=== PATIENT | female | born 1975 | race African-American/Black ===

== ENCOUNTER 2017-11-19 08:25 | Emergency (ER) | payer OTHER ==
[2017-11-19 08:37] VITALS: BP 115/52; PULSE 78; TEMP 98.3; BMI 38.0
--- NOTE | 2017-11-19 08:42 | PDOC ---
History of Present Illness - General Chief Complaint: Asthma Stated Complaint: Asthma Time Seen by Provider: 11/19/17 08:38 - History of Present Illness Initial Comments: 11/19/17 08:41 The patient denies chest pain, shortness of breath, headache and dizziness. Denies fever, chills, nausea, vomit, diarrhea and constipation. Denies dysuria, frequency, urgency and hematuria. Allergies: Past History - Past Medical History Allergies/Adverse Reactions: Allergies Allergy/AdvReac Type Severity Reaction Status Date / Time Penicillins AdvReac Severe Hives Verified 11/19/17 08:30 lobster Allergy Uncoded 11/19/17 08:30 Home Medications: Ambulatory Orders Albuterol Sulfate 0.5% [Ventolin 0.5% Nebulizing Soln. -] 1 neb IH Q4H PRN #10 vial 05/31/16 Albuterol Sulfate Inhaler - [Ventolin HFA Inhaler -] 1 - 2 inh PO Q4H PRN #1 inhaler 05/31/16 predniSONE [Deltasone -] 60 mg PO DAILY #6 tablet 05/31/16 Asthma: Yes - Surgical History Abdominal Surgery: Yes Cholecystectomy: (GALLSTONES.) - Immunization History Immunization Up to Date: Yes - Suicide/Smoking/Psychosocial Hx Smoking History: Former smoker Have you smoked in the past 12 months: No Number of Cigarettes Smoked Daily: 10 Cigars Per Day: 0 Information on smoking cessation initiated: No Hx Alcohol Use: Yes Drug/Substance Use Hx: Yes (marijuana) Substance Use Type: None Review of Systems - Review of Systems Comments:: 11/19/17 08:41 GENERAL/CONSTITUTIONAL: No fever or chills. No weakness. HEAD, EYES, EARS, NOSE AND THROAT: No change in vision. No ear pain or discharge. No sore throat. CARDIOVASCULAR: No chest pain or shortness of breath RESPIRATORY: No cough, wheezing, or hemoptysis. GASTROINTESTINAL: No nausea, vomiting, diarrhea or constipation. GENITOURINARY: No dysuria, frequency, or change in urination. MUSCULOSKELETAL: No joint or muscle swelling or pain. No neck or back pain. SKIN: No rash NEUROLOGIC: No headache, vertigo, loss of consciousness, or change in strength/ sensation. ENDOCRINE: No increased thirst. No abnormal weight change HEMATOLOGIC/LYMPHATIC: No anemia, easy bleeding, or history of blood clots. ALLERGIC/IMMUNOLOGIC: No hives or skin allergy. *Physical Exam - Vital Signs Last Vital Signs Temp Pulse Resp BP Pulse Ox 98.3 F 78 18 115/52 98 11/19/17 08:30 11/19/17 08:30 11/19/17 08:30 11/19/17 08:30 11/19/17 08:30 - Physical Exam Comments: 11/19/17 08:42 GENERAL: Awake, alert, and fully oriented, in no acute distress HEAD: No signs of trauma, normocephalic, atraumatic EYES: PERRLA, EOMI, sclera anicteric, conjunctiva clear ENT: Auricles normal inspection, hearing grossly normal, nares patent, oropharynx clear without exudates. Moist mucosa NECK: Normal ROM, supple, no lymphadenopathy, JVD, or masses LUNGS: No distress, speaks full sentences, clear to auscultation bilaterally HEART: Regular rate and rhythm, normal S1 and S2, no murmurs, rubs or gallops, peripheral pulses normal and equal bilaterally. ABDOMEN: Soft, nontender, normoactive bowel sounds. No guarding, no rebound. No masses EXTREMITIES: Normal inspection, Normal range of motion, no edema. No clubbing or cyanosis. NEUROLOGICAL: Cranial nerves II through XII grossly intact. Normal speech, normal gait, no focal sensorimotor deficits SKIN: Warm, Dry, normal turgor, no rashes or lesions noted. *DC/Admit/Observation/Transfer - Referrals Referrals: Theresa Silva MD [Primary Care Provider] - - Patient Instructions - Post Discharge Activity
[2017-11-19] MEDS ORDERED: ALBUTEROL SO4 2.5/IPRATROPIUM 0.5 INH SOL 3 ML VIAL.NEB. NEB ONE (08:50)
--- NOTE | 2017-11-19 09:12 | PDOC ---
History of Present Illness - General Chief Complaint: Asthma Stated Complaint: Asthma Time Seen by Provider: 11/19/17 08:38 History Source: Patient Exam Limitations: No Limitations - History of Present Illness Initial Comments: 11/19/17 09:23 Patient is a 42-year-old female, history of asthma reports that the power went out on her house and she ran out of her inhaler had an asthma attack this morning and could not give herself a treatment. Was wheezing prior to arrival was brought in by ambulance they gave her treatment in the ambulance which cleared her. Patient is requesting albuterol inhaler. Past Medical History: [Denies]. Allergies: No known allergies Medications: [Albuterol when necessary] Family History: Non-contributory Social History: Denies smoking, alcohol use, or IVDU Review of Systems GENERAL/CONSTITUTIONAL: [No fever or chills. No weakness. No weight change.] HEAD, EYES, EARS, NOSE AND THROAT: [No change in vision. No ear pain or discharge. No sore throat. ] CARDIOVASCULAR: [No chest pain or shortness of breath.] RESPIRATORY: [No cough, wheezing no hemoptysis] GASTROINTESTINAL: [No nausea, vomiting, diarrhea or constipation. No rectal bleeding.] GENITOURINARY: [No dysuria, frequency, or change in urination.] MUSCULOSKELETAL: [No joint or muscle swelling or pain. No neck or back pain.] SKIN AND BREASTS: [No rash or easy bruising.] NEUROLOGIC: [No headache, vertigo, loss of consciousness, or loss of sensation.] PSYCHIATRIC: [No depression or anxiety.] ENDOCRINE: [No increased thirst. No abnormal weight change.] HEMATOLOGIC/LYMPHATIC: [No anemia, easy bleeding, or history of blood clots.] ALLERGIC/IMMUNOLOGIC: [No hives or skin allergy. No latex allergy.] Physical Exam: GENERAL: [The patient is awake, alert, and fully oriented, in no acute distress. ] EYES: [Pupils equal, round and reactive to light, extraocular movements intact, sclera anicteric, conjunctiva clear.] ENT: [Ears normal, nares patent, oropharynx clear without exudates. Moist mucous membranes. No uvula deviation] NECK: [Normal range of motion, supple without lymphadenopathy, JVD, or masses.] LUNGS: [Breath sounds equal, clear to auscultation bilaterally. No wheezes, and no crackles.] HEART: [Regular rate and rhythm, normal S1 and S2 without murmur, rub or gallop. ] ABDOMEN: [Soft, nontender, normoactive bowel sounds. No guarding, no rebound. No masses. No bruising or abrasions] RECTAL : [Guaiac negative, normal rectal tone.] MUSCULOSKELETAL: [Normal range of motion, no edema. No clubbing or cyanosis. No cords, erythema, or tenderness. No CVA Tenderness with fist.] NEUROLOGICAL: [Cranial nerves II through XII grossly intact. Normal speech, normal gait.] SKIN: [Warm, Dry, normal turgor, no rashes or lesions noted.] Past History - Past Medical History Allergies/Adverse Reactions: Allergies Allergy/AdvReac Type Severity Reaction Status Date / Time Penicillins AdvReac Severe Hives Verified 11/19/17 08:30 lobster Allergy Uncoded 11/19/17 08:30 Home Medications: Ambulatory Orders Albuterol Sulfate 0.5% [Ventolin 0.5% Nebulizing Soln. -] 1 neb IH Q4H PRN #10 vial 05/31/16 predniSONE [Deltasone -] 60 mg PO DAILY #6 tablet 05/31/16 Albuterol 0.083% Nebulizer Juliana [Ventolin 0.083% Nebulizer Soln -] 1 neb NEB Q4H #30 vial 11/19/17 Albuterol Sulfate Inhaler - [Ventolin HFA Inhaler -] 1 - 2 inh PO Q4H #1 inhaler 11/19/17 Asthma: Yes - Surgical History Abdominal Surgery: Yes Cholecystectomy: (GALLSTONES.) - Immunization History Immunization Up to Date: Yes - Suicide/Smoking/Psychosocial Hx Smoking History: Former smoker Have you smoked in the past 12 months: No Number of Cigarettes Smoked Daily: 10 Cigars Per Day: 0 Information on smoking cessation initiated: No Hx Alcohol Use: Yes Drug/Substance Use Hx: Yes (marijuana) Substance Use Type: None *Physical Exam - Vital Signs Last Vital Signs Temp Pulse Resp BP Pulse Ox 98.3 F 78 18 115/52 98 11/19/17 08:30 11/19/17 08:30 11/19/17 08:30 11/19/17 08:30 11/19/17 08:30 ED Treatment Course - Medications Given in the ED: ED Medications Discontinued Medications Generic Name Dose Route Start Last Admin Trade Name Liudmila PRN Reason Stop Dose Admin Albuterol/Ipratropium 1 amp 11/19/17 08:50 11/19/17 08:54 Duoneb - NEB 11/19/17 08:51 1 amp ONCE ONE Administration Medical Decision Making - Medical Decision Making 11/19/17 09:24 A/P: Patient with asthma exacerbation cleared prior to arrival after treatment in the ambulance. I will give her one Combivent in ER DC on Ventolin neb and Ventolin inhaler. Patient reassessed prior to discharge, lungs are clear. *DC/Admit/Observation/Transfer Diagnosis at time of Disposition: Asthma, Prescription refill - Discharge Dispostion Disposition: HOME Condition at time of disposition: Stable Admit: No - Prescriptions Prescriptions: Albuterol 0.083% Nebulizer Juliana [Ventolin 0.083% Nebulizer Soln -] 1 neb NEB Q4H #30 vial Albuterol Sulfate Inhaler - [Ventolin HFA Inhaler -] 1 - 2 inh PO Q4H #1 inhaler - Referrals Referrals: Theresa Silva MD [Primary Care Provider] - - Patient Instructions Printed Discharge Instructions: Asthma -- Adult Additional Instructions: Treatments every 4 hours as needed Cool air humidifier when sleeping Followup in the primary care doctor's office in 2 days for evaluation. If any respiratory distress, increased cough, inability to drink, increased wheezing please return immediately to emergency department. - Post Discharge Activity Forms/Work/School Notes: Back to Work
== END 2017-11-19 09:18 | disposition home or self-care (01) ==
LOC: JERFT 08:25
PROC: 3E0F7GC Introduction of Other Therapeutic Substance into Respiratory Tract, Via Natural or Artificial Opening (ICD-10-PCS; principal; 2017-11-19)
DX: J45.909 Unspecified asthma, uncomplicated (principal); Z76.0 Encounter for issue of repeat prescription; Z88.0 Allergy status to penicillin; Z91.013 Allergy to seafood; Z87.891 Personal history of nicotine dependence
CPT/HCPCS: 99281-25

== ENCOUNTER 2018-05-10 12:00 | Emergency (ER) | payer OTHER ==
[2018-05-10 12:09] VITALS: BP 105/76; PULSE 79; TEMP 98.1; BMI 39.8
--- NOTE | 2018-05-10 12:24 | PDOC ---
History of Present Illness - General Chief Complaint: Asthma Stated Complaint: ASTHMA Time Seen by Provider: 05/10/18 12:13 History Source: Patient Exam Limitations: No Limitations - History of Present Illness Initial Comments: Patient is a 43-year-old female who has a history of asthma who states over the past 3 days she has been out of her inhaler. She is requesting a refill. She denies shortness of breath however admits to mild wheezing. She also has a history of seasonal ALLERGIES and states that approximately this time every year she has clear nasal drainage and her asthma is exacerbated. Patient denies chest pain. Patient denies any aggravating factors overstates her inhaler relieves her symptoms. 05/10/18 12:20 Timing/Duration: constant Past History - Travel Traveled outside of the country in the last 30 days: No Close contact w/someone who was outside of country & ill: No - Past Medical History Allergies/Adverse Reactions: Allergies Allergy/AdvReac Type Severity Reaction Status Date / Time Penicillins AdvReac Severe Hives Verified 05/10/18 12:06 lobster Allergy Uncoded 05/10/18 12:06 Home Medications: Ambulatory Orders Albuterol Sulfate Inhaler - [Ventolin Hfa Inhaler -] 1 - 2 inh PO Q4H #1 inhaler 05/10/18 Montelukast Sodium [Singulair] 10 mg PO HS 05/10/18 Asthma: Yes COPD: No - Surgical History Abdominal Surgery: Yes Cholecystectomy: No (GALLSTONES.) - Immunization History Immunization Up to Date: Yes - Suicide/Smoking/Psychosocial Hx Smoking History: Former smoker Have you smoked in the past 12 months: No Number of Cigarettes Smoked Daily: 10 Cigars Per Day: 0 Information on smoking cessation initiated: No Hx Alcohol Use: Yes Drug/Substance Use Hx: Yes (marijuana) Substance Use Type: None Review of Systems - Review of Systems Able to Perform ROS?: Yes Constitutional: No: Chills, Fever Respiratory: Yes: Wheezing. No: Cough, Shortness of Breath, Stridor Cardiac (ROS): No: Chest Pain All Other Systems: Reviewed and Negative *Physical Exam - Vital Signs Last Vital Signs Temp Pulse Resp BP Pulse Ox 98.1 F 79 18 105/76 100 05/10/18 12:07 05/10/18 12:07 05/10/18 12:07 05/10/18 12:07 05/10/18 12:07 - Physical Exam Comments: Constitutional: VS stated, pt appears in no apparent distress; sitting in chair. Able to speak in complete sentences without becoming short of breath. Skin: Warm and dry. Intact, no lesions or excoriations. Head: Normocephalic; atraumatic Eyes conjunctiva pink without injection or discharge. Lids normal; no periorbital edema or erythema. Vision subjectively normal or at baseline. Ears: No tenderness present. Canals without injection or discharge; TM clear, no retractions or bulging. Nose: Patent, mucosa pink. No drainage. Throat: Oropharynx with pink and moist mucosa. Dentition good. No pharyngeal edema; erythema or exudate. Tongue normal, no fasciculations. Airway Patent. Hypoglossal area is soft. Neck: Supple, non-tender, with full ROM, trachea midline, no anterior/posterior cervical chain lymphadenopathy Chest: Normal AP diameter, symmetrical excursions bilaterally, no retractions or bulging of the intercostal spaces. No pain or tenderness noted on palpation. Lungs: Patient has mild wheezing on the left anterior and posteriorly. No use of accessory muscles. Heart: Regular rate and rhythm, S1/S2 auscultated. No murmurs, rubs, or gallops. No visible pulsations, heaves, or lifts on precordium. Musculoskeletal: Moves all extremities without difficulty. Neurologic: Awake, alert. Conversation fluent. Psychiatric: Appropriate affect. 05/10/18 12:21 Medical Decision Making - Medical Decision Making Patient's oxygen saturation is 100%. She is able to speak in complete sentences. At this time I will refill her albuterol and she'll follow-up with her PCP. 05/10/18 12:23 *DC/Admit/Observation/Transfer Diagnosis at time of Disposition: Asthma - Discharge Dispostion Disposition: HOME Condition at time of disposition: Stable Decision to Admit order: No - Prescriptions Prescriptions: Albuterol Sulfate Inhaler - [Ventolin Hfa Inhaler -] 1 - 2 inh PO Q4H #1 inhaler - Referrals Referrals: Theresa Silva MD [Primary Care Provider] - - Patient Instructions Printed Discharge Instructions: Asthma -- Adult - Post Discharge Activity
== END 2018-05-10 12:26 | disposition home or self-care (01) ==
LOC: JERFT 12:00
DX: J45.909 Unspecified asthma, uncomplicated (principal); Z88.0 Allergy status to penicillin; Z91.013 Allergy to seafood
CPT/HCPCS: 99281-25

== ENCOUNTER 2018-06-28 17:03 | Inpatient (IN) | payer OTHER ==
--- NOTE | 2018-06-28 17:09 | PDOC ---
Rapid Medical Evaluation Chief Complaint: Asthma Time Seen by Provider: 06/28/18 17:07 Medical Evaluation: Allergies Allergy/AdvReac Type Severity Reaction Status Date / Time Penicillins AdvReac Severe Hives Verified 06/28/18 17:06 lobster Allergy Uncoded 06/28/18 17:06 06/28/18 17:07 I have performed a brief in person evaluation of this patient. The patient presents with a chief complaint of: "I think my asthma is acting up." Pt is a 43 YO female who is a known asthmatic who states "My asthma is acting up since last night." Pt has been using her inhalers at home without success. Pertinent PE: Skin: Clear Lungs: Mild expiratory wheezing Heart: RRR MS: Moves all extremities without difficulty. Neuro: Alert and oriented Psych: Appropriate affect The patient will proceed to: pt will go to [facility] for further evaluation. Discharge Disposition - Diagnosis Asthma exacerbation Qualifiers: Asthma severity: mild Asthma persistence: persistent Qualified Code(s): J45.31 - Mild persistent asthma with (acute) exacerbation - Referrals Referrals: Theresa Silva MD [Primary Care Provider] - - Patient Instructions - Post Discharge Activity
[2018-06-28] MEDS ORDERED: DEXAMETHASONE LIQUID 0.5 MG/5 ML 240 ML BULK BOTTLE PO ONE (17:45)
[2018-06-28] MEDS ORDERED: ALBUTEROL SO4 2.5/IPRATROPIUM 0.5 INH SOL 3 ML VIAL.NEB. NEB ONE ×4 (17:45→20:07)
[2018-06-28] MEDS ORDERED: DEXAMETHASONE SOD PHOSPHATE 10 MG/1 ML VIAL ONE (17:49)
[2018-06-28] MEDS: ALBUTEROL SO4 2.5/IPRATROPIUM 0.5 INH SOL 3 ML VIAL.NEB. NEB SCH ×4 (17:51→18:40)
--- NOTE | 2018-06-28 19:23 | PDOC ---
History of Present Illness - General Chief Complaint: Asthma Stated Complaint: Asthma Time Seen by Provider: 06/28/18 17:07 - History of Present Illness Initial Comments: 43-year-old healthy female without comorbidities presents for evaluation of asthma. She states her asthma attack started last night which may been precipitated by an upper respiratory infection. She has never been intubated for asthma and she has never been hospitalized. 06/28/18 19:22 Past History - Past Medical History Allergies/Adverse Reactions: Allergies Allergy/AdvReac Type Severity Reaction Status Date / Time Penicillins AdvReac Severe Hives Verified 06/28/18 17:06 lobster Allergy Uncoded 06/28/18 17:06 Home Medications: Ambulatory Orders NK [No Known Home Medication] 06/28/18 Asthma: Yes COPD: No - Surgical History Abdominal Surgery: Yes Cholecystectomy: No (GALLSTONES REMOVED) - Immunization History Immunization Up to Date: Yes - Suicide/Smoking/Psychosocial Hx Smoking History: Never smoked Have you smoked in the past 12 months: No Number of Cigarettes Smoked Daily: 10 Cigars Per Day: 0 Information on smoking cessation initiated: No Hx Alcohol Use: No Drug/Substance Use Hx: No Substance Use Type: None Review of Systems - Review of Systems Respiratory: Yes: Cough, Shortness of Breath, Wheezing All Other Systems: Reviewed and Negative *Physical Exam - Vital Signs Last Vital Signs Temp Pulse Resp BP Pulse Ox 98.6 F 93 H 24 H 138/85 97 06/28/18 17:08 06/28/18 17:08 06/28/18 17:08 06/28/18 17:08 06/28/18 17:08 - Physical Exam Comments: HEAD: NC/AT EYES: Conjuntiva clear Ears: Canals and TM's normal NOSE: No d/c THROAT: Moist mucous membrances, oral pharanx clear, uvula midline NECK: Supple without adenopathy CARDIAC: S1 S2 LUNGS: Diffuse wheezing in all lung cruz ABDOMEN: Soft NT ND MS: Full ROM in all joints without edema NEUROLOGIC: No gross sensory or motor deficits, NVID SKIN: Normal color and temperature no lesions or rashes 06/28/18 19:22 ED Treatment Course - Medications Given in the ED: ED Medications Discontinued Medications Generic Name Dose Route Start Last Admin Trade Name Freq PRN Reason Stop Dose Admin Albuterol/Ipratropium 1 amp 06/28/18 17:45 06/28/18 18:40 Duoneb - NEB 06/28/18 18:31 1 amp Q15M ASA Administration Dexamethasone 10 mg 06/28/18 17:45 06/28/18 17:51 Decadron Liquid - PO 06/28/18 17:46 10 mg ONCE ONE Administration Medical Decision Making - Medical Decision Making Continue diffuse wheezing after for Arvin Denney I will transfer her to the main emergency room 06/28/18 19:23 *DC/Admit/Observation/Transfer Diagnosis at time of Disposition: Asthma exacerbation Qualifiers: Asthma severity: mild Asthma persistence: persistent Qualified Code(s): J45.31 - Mild persistent asthma with (acute) exacerbation - Referrals Referrals: Theresa Silva MD [Primary Care Provider] - - Patient Instructions - Post Discharge Activity
[2018-06-28] MEDS ORDERED: SODIUM CHLORIDE 1,000 ML IV STA (19:53)
[2018-06-28] MEDS ORDERED: methylPREDNISolone NA SUCC 125 MG/2 ML VIAL IVPB ONE (19:53)
[2018-06-28] MEDS ORDERED: MAGNESIUM SULF 50% (8.12 MEQ/2 ML-1 GM VIAL) IVPB ONE (19:53)
--- NOTE | 2018-06-28 19:59 | PDOC ---
*Physical Exam - Vital Signs Last Vital Signs Temp Pulse Resp BP Pulse Ox 98.6 F 93 H 24 H 138/85 97 06/28/18 17:08 06/28/18 17:08 06/28/18 17:08 06/28/18 17:08 06/28/18 17:08 - Physical Exam General Appearance: Yes: Appropriately Dressed Respiratory/Chest: positive: Labored Respiration (sightly), Decreased Breath Sounds, Wheezing ED Treatment Course - LABORATORY CBC & Chemistry Diagram: 06/28/18 20:05 06/28/18 20:47 - Medications Given in the ED: ED Medications Discontinued Medications Generic Name Dose Route Start Last Admin Trade Name Freq PRN Reason Stop Dose Admin Albuterol/Ipratropium 1 amp 06/28/18 17:45 06/28/18 18:40 Duoneb - NEB 06/28/18 18:31 1 amp Q15M ASA Administration Dexamethasone 10 mg 06/28/18 17:45 06/28/18 17:51 Decadron Liquid - PO 06/28/18 17:46 10 mg ONCE ONE Administration Medical Decision Making - Medical Decision Making 06/28/18 19:54 patient reports a recent cold worsening the wheezing episode. denies hospitalization for asthma in the past. patient also reports that she vomited ~ 10-15 mins after decadron. will give magnesium, solumedrol and IVF and neb. 06/28/18 22:26 Patient is s/p magnesium , duoneb x 5 and IV solumedrol with minimal imporvement in wheezing. patient reports that she " still fels tight" will give terbultaline. will obs patient for evaluation 06/28/18 23:22 patient to be placed in obs i signed out to Dr. silveira/ Dr. tran *DC/Admit/Observation/Transfer Diagnosis at time of Disposition: Asthma exacerbation Qualifiers: Asthma severity: mild Asthma persistence: persistent Qualified Code(s): J45.31 - Mild persistent asthma with (acute) exacerbation - Discharge Dispostion Decision to Admit order: Yes - Referrals Referrals: Theresa Silva MD [Primary Care Provider] - - Patient Instructions - Post Discharge Activity
[2018-06-28] MEDS ORDERED: methylPREDNISolone NA SUCC 125 MG/2 ML VIAL ONE (20:07)
[2018-06-28] MEDS ORDERED: ALBUTEROL SO4 0.083% IH SOL 2.5 MG/3 ML VIAL.NEB. NEB ONE (20:07)
[2018-06-28] MEDS ORDERED: MAGNESIUM 1GM/D5W - 2 GM/200 ML IVPB IVPB ONE (20:24)
[2018-06-28 21:46] LABS: ALK PHOS 92 U/L (45-117); ANION GAP 7 MMOL/L (8-16); BILIRUBIN,TOTAL 0.4 mg/dL (0.2-1); BLOOD UREA NITROGEN 11 mg/dL (7-18); CALCIUM 9.4 mg/dL (8.5-10.1); CHLORIDE 108 mmol/L (98-107); CO2 25 mmol/L (21-32); CREATININE 0.9 mg/dL (0.55-1.3); GLUCOSE,RANDOM 179 mg/dL (74-106); POTASSIUM 3.9 mmol/L (3.5-5.1); SGOT/AST 13 U/L (15-37); SGPT/ALT 19 U/L (13-61); SODIUM 141 mmol/L (136-145); TOT PROT 7.6 g/dl (6.4-8.2)
[2018-06-28] MEDS ORDERED: AZITHROMYCIN 250 MG TABLET PO ONE (22:08)
[2018-06-28 22:09] LABS: BASO % 0.2 % (0-2.0); EOS % 0.2 % (0-4.5); HEMATOCRIT 37.4 % (32.4-45.2); HEMOGLOBIN 12.7 GM/dL (10.7-15.3); LYMPH % 3.3 % (8-40); MCH 30.9 pg (25.7-33.7); MCHC 34.1 g/dl (32.0-36.0); MEAN CELL VOLUME 90.7 fl (80-96); MEAN PLT VOLUME 8.5 fl (7.5-11.1); MONO % 1.5 % (3.8-10.2); NEUT % 94.8 % (42.8-82.8); PLATELET COUNT 421 K/MM3 (134-434); RBC 4.12 M/mm3 (3.60-5.2); RDW 13.7 % (11.6-15.6); WHITE BLOOD COUNT 15.3 K/mm3 (4.0-10.0)
[2018-06-28] MEDS ORDERED: AZITHROMYCIN 250 MG TABLET ONE (22:21)
[2018-06-28] MEDS ORDERED: TERBUTALINE SULFATE 1 MG/1 ML VIAL SQ ONE ×2 (22:26→22:44)
--- NOTE | 2018-06-28 22:56 | PN ---
Teaching Attending Note Name of Resident: Alfredo Handley ATTENDING PHYSICIAN STATEMENT I saw and evaluated the patient. I reviewed the resident's note and discussed the case with the resident. I agree with the resident's findings and plan as documented. SUBJECTIVE: Patient is a 43 year old woman with history of penicillin allergy, obesity and asthma presents for evaluation of SOB. She states her asthma attack started last night which may been precipitated by an upper respiratory infection. She has never been intubated for asthma and she has never been hospitalized. OBJECTIVE: Alert Vital Signs Period Temp Pulse Resp BP Sys/Guerra Pulse Ox Last 24 Hr 97.8 F-98.6 F 93-102 18-24 127-138/80-85 96-97 HEENT: No Jaundice, eye redness or discharge, PERRLA, EOMI. Normocephalic, atraumatic. External ears are normal and hearing is grossly intact. No nasal discharge. Neck: Supple, nontender. No palpable adenopathy or thyromegaly. No JVD Chest: Good effort. Wheezing with prolonged expiration. Heart: Regular. No S3, rub or murmur Abdomen: Not distended, soft, nontender and no HSM. No rebound or guarding. Normoactive bowel sounds. Ext: Peripheral pulses intact. No leg edema. Skin: Warm and dry. No petechiae, rash or ecchymosis. Neuro: Alert. Oriented x3. CN 2-12 grossly intact. Sensation grossly intact in all four extremities and DTR are symmetric. Home Medications Medication Instructions Recorded NK [No Known Home Medication] 06/28/18 Abnormal Lab Results 06/28/18 06/28/18 20:05 20:47 WBC 15.3 H Absolute Neuts (auto) 14.5 H Neutrophils % 94.8 H Lymphocytes % 3.3 L D Monocytes % 1.5 L Chloride 108 H Anion Gap 7 L Random Glucose 179 H AST 13 L ASSESSMENT AND PLAN: 1. Acute asthma exacerbation - May have been precipitated by URI. No acute pathology on CXR. Being treated with duoneb, spiriva, symbicort, solumedrol 40 mg q 8 hours and azithromycin 500 mg po qd. Check HbA1c 2. Obesity - Will provide patient all the necessary assistance, counseling and positive reinforcement to facilitate weight loss. Consult [facility]. 3. DVT prophylaxis - Lovenox 40 mg SQ q 12 hours. 4. Advance directives - Full code
[2018-06-28 23:53] LABS: PLATELET ESTIMATE ADEQUATE
--- NOTE | 2018-06-29 00:03 | HP ---
CHIEF COMPLAINT: SOB PCP: Dr Silva HISTORY OF PRESENT ILLNESS: Pt is a 43 y/o lady with a current medical history of asthma who presented to [facility] yesterday evening (06/28/18) c/o shortness of breath and chest tightness. Pt endorses she experienced a URI approximately 2 weeks ago which she treated with OTC cough medications. Pt initially had a cough that was productive of thick, yellow sputum but cough has now nearly subsided with light yellow to clear sputum. Pt states that this past Thursday night, she began to experience severe shortness of breath and chest tightness. States she began using a new albuterol inhaler this past Thursday (06/26/18) containing 206 puffs. Inhaler now only has 37 puffs remaining. In addition, pt has used multiple nebulizer treatments at home with little to no relief. Pt endorses she has not needed to use any nebulizer treatments for months up until her URI 2 weeks ago. Pt endorses that she usually uses her albuterol inhaler 1 or 2 times per week. Pt has never been intubated or hospitalized for asthma in the past. Endorses that she has experienced numerous asthma exacerbations in the past but this episode has been the worst. Denies chest pain, lightheadedness, or fever. ER course was notable for: (1) WBC 15.3 (2) 6 amps duonebs, 0.025 Terbutaline, 10 mg decadron, 125 mg Solumedrol IVPB, 2 gm MgSo4, 2 amps ventolin (3) Glucose 179 Recent Travel: Denies PAST MEDICAL HISTORY: Asthma PAST SURGICAL HISTORY: Social History: Smoking: Former smoker, quit 15 years ago, smoked 1/2 pack/per day for 15 years Alcohol: denies Drugs: smokes Family History: Allergies Penicillins Adverse Reaction (Severe, Verified 06/28/18 17:06) Hives lobster Allergy (Uncoded 06/28/18 17:06) HOME MEDICATIONS: Home Medications Medication Instructions Recorded NK [No Known Home Medication] 06/28/18 REVIEW OF SYSTEMS CONSTITUTIONAL: PRESENT: generalized weakness, malaise HEENT: Absent: rhinorrhea, nasal congestion, throat pain, throat swelling, difficulty swallowing, mouth swelling, ear pain, eye pain, visual changes CARDIOVASCULAR: Absent: chest pain, syncope, palpitations, irregular heart rate, lightheadedness , peripheral edema RESPIRATORY: PRESENT: cough, shortness of breath, dyspnea with exertion, orthopnea, wheezing , GASTROINTESTINAL: Absent: abdominal pain, abdominal distension, nausea, vomiting, diarrhea, constipation, melena, hematochezia GENITOURINARY: Absent: dysuria, frequency, urgency, hesitancy, hematuria, flank pain, genital pain MUSCULOSKELETAL: Absent: myalgia, arthralgia, joint swelling, back pain, neck pain SKIN: Absent: rash, itching, pallor HEMATOLOGIC/IMMUNOLOGIC: Absent: easy bleeding, easy bruising, lymphadenopathy, frequent infections ENDOCRINE: Absent: unexplained weight gain, unexplained weight loss, heat intolerance, cold intolerance NEUROLOGIC: Absent: headache, focal weakness or paresthesias, dizziness, unsteady gait, seizure, mental status changes, bladder or bowel incontinence PSYCHIATRIC: Absent: anxiety, depression, suicidal or homicidal ideation, hallucinations. PHYSICAL EXAMINATION Vital Signs - 24 hr 06/28/18 06/28/18 17:08 22:42 Temperature 98.6 F 97.8 F Pulse Rate 93 H Pulse Rate [ 102 H Left Apical] Respiratory 24 H 18 Rate Blood Pressure 138/85 Blood Pressure 127/80 [Left Arm] O2 Sat by Pulse 97 96 Oximetry (%) GENERAL: NAD, AAOX3 HEAD: NC/AT EYES: PERRLA, EOMI EARS, NOSE, THROAT: MMM NECK: MMM, No adenopathy, No exudates or erythema LUNGS: diffuse expiratory wheezing throuhout HEART: RRR, No MRG, S1 S2 ABDOMEN: NT, ND, No HSM MUSCULOSKELETAL: Full ROM throughout UPPER EXTREMITIES: No CCE LOWER EXTREMITIES: No CCE PSYCHIATRIC: Cooperative. Good eye contact. Appropriate mood and affect. SKIN: No Rashes or lesions appreciated Laboratory Results - last 24 hr 06/28/18 06/28/18 06/28/18 20:05 20:05 20:47 WBC 15.3 H RBC 4.12 Hgb 12.7 Hct 37.4 MCV 90.7 MCH 30.9 MCHC 34.1 RDW 13.7 D Plt Count 421 D MPV 8.5 Absolute Neuts (auto) 14.5 H Neutrophils % 94.8 H Neutrophils % (Manual) 90.0 H Band Neutrophils % 2.0 Lymphocytes % 3.3 L D Lymphocytes % (Manual) 6.0 L Monocytes % 1.5 L Monocytes % (Manual) 2 L Eosinophils % 0.2 Eosinophils % (Manual) 0.0 Basophils % 0.2 Basophils % (Manual) 0.0 Nucleated RBC % 0 Platelet Estimate Adequate Sodium Cancelled Potassium Cancelled Chloride Cancelled Carbon Dioxide Cancelled Anion Gap Cancelled BUN Cancelled Creatinine Cancelled Creat Clearance w eGFR Cancelled Random Glucose Cancelled Calcium Cancelled Total Bilirubin Cancelled AST Cancelled ALT Cancelled Alkaline Phosphatase Cancelled Total Protein Cancelled Albumin Cancelled Serum , Qual Negative 06/28/18 20:47 WBC RBC Hgb Hct MCV MCH MCHC RDW Plt Count MPV Absolute Neuts (auto) Neutrophils % Neutrophils % (Manual) Band Neutrophils % Lymphocytes % Lymphocytes % (Manual) Monocytes % Monocytes % (Manual) Eosinophils % Eosinophils % (Manual) Basophils % Basophils % (Manual) Nucleated RBC % Platelet Estimate Sodium 141 Potassium 3.9 Chloride 108 H Carbon Dioxide 25 Anion Gap 7 L BUN 11 Creatinine 0.9 Creat Clearance w eGFR > 60 Random Glucose 179 H Calcium 9.4 Total Bilirubin 0.4 AST 13 L ALT 19 Alkaline Phosphatase 92 Total Protein 7.6 Albumin 4.0 Serum , Qual ASSESSMENT/PLAN: Pt is a 43 y/o lady with a current medical history of asthma who presented to [facility] yesterday evening (06/28/18) c/o shortness of breath and chest tightness #Asthma Exacerbation -ED Course--> Received 5 Duoneb treatments, Decadron 10 mg PO, MgSo4 2gm, solumedrol 125 IVPB, terbutaline 0.25 mg SQ - Spiriva -Azithromycin 500 QD - Symbicort -Solumedrol 40 mg Q8H -Pulm Consult -Chest xray--> No evidence of active pulmonary disease. FEN No Fluids Monitor Electrolytes Regular Diet DVT ppx: Heparin SQ TID Dispo: Continue to monitor on floor Visit type - Emergency Visit Emergency Visit: Yes ED Registration Date: 06/28/18 Care time: The patient presented to the Emergency Department on the above date and was hospitalized for further evaluation of their emergent condition. - New Patient This patient is new to me today: Yes Date on this admission: 06/29/18 - Critical Care Critical Care patient: No
[2018-06-29] MEDS ORDERED: ALBUTEROL SO4 2.5/IPRATROPIUM 0.5 INH SOL 3 ML VIAL.NEB. NEB ONE ×3 (01:00→07:42)
[2018-06-29] MEDS ORDERED: ALBUTEROL SO4 0.083% IH SOL 2.5 MG/3 ML VIAL.NEB. NEB ONE ×2 (01:56→02:27)
[2018-06-29] MEDS: HEPARIN NA (PORCINE) 5,000 UNITS/ML 1ML VIAL SQ SCH ×3 (06:55→21:13)
[2018-06-29] MEDS ORDERED: HEPARIN NA (PORCINE) 5,000 UNITS/ML 1ML VIAL ONE (07:12)
[2018-06-29] MEDS ORDERED: AZITHROMYCIN IVPB 500 MG in DEXTROSE 5%-WATER - 250 ML IVPB SCH (10:00)
[2018-06-29] MEDS: methylPREDNISolone NA SUCC 40 MG/1 ML VIAL IVPB SCH ×2 (11:41→18:40)
[2018-06-29] MEDS ORDERED: CEFTRIAXONE 1,000 MG in DEXTROSE 5%-WATER - 50 ML IVPB SCH (12:30)
--- NOTE | 2018-06-29 12:34 | EKG ---
Test Reason : Blood Pressure : / mmHG Vent. Rate : 088 BPM Atrial Rate : 088 BPM P-R Int : 136 ms QRS Dur : 090 ms QT Int : 402 ms P-R-T Axes : 070 063 053 degrees QTc Int : 486 ms SINUS RHYTHM WITH PREMATURE ATRIAL COMPLEXES PROLONGED QT ABNORMAL ECG Confirmed by MD SANCHEZ, YULIANA ([id number]) on 06/29/2018 12:33:56 PM Referred By: Confirmed By:YULIANA BRADFORD MD
[2018-06-29] MEDS: AZITHROMYCIN IVPB 500 MG/250 ML BAG IVPB SCH (15:50)
[2018-06-29] MEDS ORDERED: PT OWN MED DRAWER 7, Y5N ONE (16:20)
[2018-06-29] MEDS: BUDESONIDE/FORMETEROL FUMARATE 80/4.5 mcg INHALER IH SCH ×2 (16:23→21:57)
[2018-06-29] MEDS: TIOTROPIUM BROMIDE 2.5 MCG (SPIRIVA) RESPIMAT INHALER IH SCH (16:24)
[2018-06-29] MEDS ORDERED: ALBUTEROL SO4 2.5/IPRATROPIUM 0.5 INH SOL 3 ML VIAL.NEB. NEB PRN (16:29)
--- NOTE | 2018-06-29 16:33 | PN ---
Physical Exam: SUBJECTIVE: Patient seen and examined at bedside this morning. No acute events overnight OBJECTIVE: Vital Signs Period Temp Pulse Resp BP Sys/Guerra Pulse Ox Last 24 Hr 97.8 F-98.6 F 92-102 18-24 109-138/71-88 96-97 GENERAL: The patient is awake, alert, and fully oriented, in no acute distress. HEAD: Normal with no signs of trauma. EYES: PERRLA, EOMI, sclera anicteric, conjunctiva clear. ENT: Ears normal, nares patent, oropharynx clear without exudates, moist mucous membranes. NECK: Trachea midline, full range of motion, supple. LUNGS: +scattered wheezes bilaterally HEART: Regular rate and rhythm, S1, S2 without murmur, rub or gallop. ABDOMEN: Soft, nontender, nondistended, normoactive bowel sounds. EXTREMITIES: 2+ pulses, warm, well-perfused, no edema. NEUROLOGICAL: Cranial nerves II through XII grossly intact. Normal speech, gait not observed. PSYCH: Normal mood, normal affect. SKIN: Warm, dry, normal turgor, no rashes or lesions noted Laboratory Results - last 24 hr 06/28/18 06/28/18 06/28/18 20:05 20:05 20:47 WBC 15.3 H RBC 4.12 Hgb 12.7 Hct 37.4 MCV 90.7 MCH 30.9 MCHC 34.1 RDW 13.7 D Plt Count 421 D MPV 8.5 Absolute Neuts (auto) 14.5 H Neutrophils % 94.8 H Neutrophils % (Manual) 90.0 H Band Neutrophils % 2.0 Lymphocytes % 3.3 L D Lymphocytes % (Manual) 6.0 L Monocytes % 1.5 L Monocytes % (Manual) 2 L Eosinophils % 0.2 Eosinophils % (Manual) 0.0 Basophils % 0.2 Basophils % (Manual) 0.0 Nucleated RBC % 0 Platelet Estimate Adequate Sodium Cancelled Potassium Cancelled Chloride Cancelled Carbon Dioxide Cancelled Anion Gap Cancelled BUN Cancelled Creatinine Cancelled Creat Clearance w eGFR Cancelled Random Glucose Cancelled Calcium Cancelled Total Bilirubin Cancelled AST Cancelled ALT Cancelled Alkaline Phosphatase Cancelled Total Protein Cancelled Albumin Cancelled Serum , Qual Negative 06/28/18 20:47 WBC RBC Hgb Hct MCV MCH MCHC RDW Plt Count MPV Absolute Neuts (auto) Neutrophils % Neutrophils % (Manual) Band Neutrophils % Lymphocytes % Lymphocytes % (Manual) Monocytes % Monocytes % (Manual) Eosinophils % Eosinophils % (Manual) Basophils % Basophils % (Manual) Nucleated RBC % Platelet Estimate Sodium 141 Potassium 3.9 Chloride 108 H Carbon Dioxide 25 Anion Gap 7 L BUN 11 Creatinine 0.9 Creat Clearance w eGFR > 60 Random Glucose 179 H Calcium 9.4 Total Bilirubin 0.4 AST 13 L ALT 19 Alkaline Phosphatase 92 Total Protein 7.6 Albumin 4.0 Serum , Qual Active Medications Generic Name Dose Route Start Last Admin Trade Name Freq PRN Reason Stop Dose Admin Albuterol/Ipratropium 1 amp 06/29/18 16:29 Duoneb - NEB Q6H PRN SHORTNESS OF BREATH Budesonide/Formoterol Fumarate 2 puff 06/29/18 10:00 06/29/18 16:23 Symbicort 80/4.5mcg - IH 2 inh BID ASA Administration Heparin Sodium (Porcine) 5,000 unit 06/29/18 06:00 06/29/18 13:02 Heparin - SQ 5,000 unit TID ASA Administration Levofloxacin 500 mg in 100 mls @ 100 mls/hr 06/29/18 13:00 06/29/18 13:02 Levaquin 500 Mg Premixed Ivpb - IVPB 100 mls/hr DAILY ASA Administration Protocol Azithromycin 500 mg in 250 mls @ 250 mls/hr 06/29/18 14:30 06/29/18 15:50 Zithromax 500mg Ivpb (Pre-Docked) IVPB 250 mls/hr DAILY ASA Administration Methylprednisolone Sodium Succinate 40 mg 06/29/18 10:15 06/29/18 11:41 Solu-Medrol - IVPB 40 mg Q8H-IV ASA Administration Tiotropium [place] 2 puff 06/29/18 10:00 06/29/18 16:24 Spiriva Respimat IH 2 puff DAILY ASA Administration ASSESSMENT/PLAN: Patient is a 43 year old female with past medical history of asthma, presented with a 2-day history of shortness of breath. #Acute asthma exacerbation -CXR - no active pulmonary disease -Methylprednisolone 40mg q8 -spiriva -symbicort -Azithromycin 500mg daily -Ceftriaxone switched to Levaquin 500mg as patient has penicillin allergy -Duonebs q6 PRN -Pulmonology consulted. Recommendations appreciated. #FEN -Not on any standing fluids -Encourage increased oral fluid intake -Electrolytes wnl, routine bmp monitorin -Regular diet #Prophylaxis -Heparin 5000units sq tid #Disposition -full code -admit to med-surg Visit type - Emergency Visit Emergency Visit: Yes ED Registration Date: 06/28/18 Care time: The patient presented to the Emergency Department on the above date and was hospitalized for further evaluation of their emergent condition. - New Patient This patient is new to me today: Yes Date on this admission: 06/29/18 - Critical Care Critical Care patient: No
--- NOTE | 2018-06-29 18:15 | PN ---
Teaching Attending Note Name of Resident: Nadia Hamm ATTENDING PHYSICIAN STATEMENT I saw and evaluated the patient. I reviewed the resident's note and discussed the case with the resident. I agree with the resident's findings and plan as documented. SUBJECTIVE:overall improved however became dyspnic while ambulating to the bathroom. continues to have productive cough. denies CP, fever, chills, N/V/C/ D. was formally diagnosed with PFT as a child. was given symbicort but never used it as she didnt get immediate relief. OBJECTIVE: Last Vital Signs Temp Pulse Resp BP Pulse Ox 98.3 F 85 20 137/65 96 06/29/18 17:14 06/29/18 17:14 06/29/18 17:14 06/29/18 17:14 06/29/18 14:00 General NAD CV S1 S2 RRR no murmur/rub/gallop Lungs diffuse wheezing no crackles ASSESSMENT AND PLAN: 43yo F wtih PMH obesity and asthma presented to the ER with increasing dyspnea and productive cough 1. Acute asthma exacerbation- due to medication non-compliance. was never hospitalized in the past. received medrol 125mcg in the ER. start medrol 40mg Q8H, azithromycin and levaquin (PCN allergy) symbicort and spiriva. Pulmonary consult. 2. obesity- BMI 39. baritric referral as outpatient 3. DVT ppx- hep sq
[2018-06-30] MEDS: methylPREDNISolone NA SUCC 40 MG/1 ML VIAL IVPB SCH ×3 (01:32→20:02)
[2018-06-30] MEDS: HEPARIN NA (PORCINE) 5,000 UNITS/ML 1ML VIAL SQ SCH ×3 (05:39→21:24)
[2018-06-30 08:00] LABS: HEMATOCRIT 35.4 % (32.4-45.2); HEMOGLOBIN 11.7 GM/dL (10.7-15.3); MCH 30.3 pg (25.7-33.7); MCHC 33.2 g/dl (32.0-36.0); MEAN CELL VOLUME 91.1 fl (80-96); PLATELET COUNT 356 K/MM3 (134-434); RBC 3.88 M/mm3 (3.60-5.2); RDW 13.8 % (11.6-15.6); WHITE BLOOD COUNT 23.4 K/mm3 (4.0-10.0)
[2018-06-30 08:30] LABS: ANION GAP 4 MMOL/L (8-16); BLOOD UREA NITROGEN 16 mg/dL (7-18); CALCIUM 9.5 mg/dL (8.5-10.1); CHLORIDE 109 mmol/L (98-107); CO2 25 mmol/L (21-32); CREATININE 0.9 mg/dL (0.55-1.3); GLUCOSE,RANDOM 93 mg/dL (74-106); MAGNESIUM 2.5 mg/dL (1.8-2.4); PHOSPHOROUS 2.8 mg/dL (2.5-4.9); POTASSIUM 4.5 mmol/L (3.5-5.1); SODIUM 138 mmol/L (136-145)
[2018-06-30] MEDS ORDERED: methylPREDNISolone NA SUCC 40 MG/1 ML VIAL IVPB SCH (10:00)
[2018-06-30] MEDS: TIOTROPIUM BROMIDE 2.5 MCG (SPIRIVA) RESPIMAT INHALER IH SCH (10:23)
[2018-06-30] MEDS: BUDESONIDE/FORMETEROL FUMARATE 80/4.5 mcg INHALER IH SCH (10:23)
[2018-06-30] MEDS: AZITHROMYCIN IVPB 500 MG/250 ML BAG IVPB SCH (10:23)
--- NOTE | 2018-06-30 14:52 | PN ---
Progress Note (short form) - Note Progress Note: PULMONARY CONSULTATION DICTATED 06/30/18 IMP CHRONIC PERSISTENT ASTHMA WITH ACUTE EXACERBATION SECONDARY TO URI LIKELY VIRAL PLAN IV STEROIDS INHALED BRONCHODILATORS O2 NEEDED MONITOR PEAK FLOW PFTS OUTPATIENT SERUM IGE LEVEL OUTPATIENT DR GORDON Problem List - Problems (1) Mild persistent chronic asthma with acute exacerbation Code(s): J45.31 - MILD PERSISTENT ASTHMA WITH (ACUTE) EXACERBATION (2) Asthma exacerbation Code(s): J45.901 - UNSPECIFIED ASTHMA WITH (ACUTE) EXACERBATION Qualifiers: Asthma severity: mild Asthma persistence: persistent Qualified Code(s): J45.31 - Mild persistent asthma with (acute) exacerbation (3) Viral upper respiratory infection Code(s): J06.9 - ACUTE UPPER RESPIRATORY INFECTION, UNSPECIFIED; B97.89 - OTH VIRAL AGENTS THE CAUSE OF DISEASES CLASSD ELSWHR
[2018-06-30] MEDS: ALBUTEROL SO4 0.083% IH SOL 2.5 MG/3 ML VIAL.NEB. NEB PRN ×2 (15:00→20:30)
--- NOTE | 2018-06-30 15:37 | PN ---
Teaching Attending Note Name of Resident: Nadia Hamm ATTENDING PHYSICIAN STATEMENT I saw and evaluated the patient. I reviewed the resident's note and discussed the case with the resident. I agree with the resident's findings and plan as documented. SUBJECTIVE:remains dyspnic on exertion but overall improved. continues to have cough but less productive. denies CP, fever, chills, N/V/C/D OBJECTIVE: Last Vital Signs Temp Pulse Resp BP Pulse Ox 98.1 F 72 20 122/58 L 96 06/30/18 07:10 06/30/18 07:10 06/30/18 07:10 06/30/18 07:10 06/30/18 01:03 General NAD CV S1 S2 RRR no murmur/rub/gallop Lungs diffuse wheezing no crackles improved inspiratory effort ASSESSMENT AND PLAN: 43yo F wtih PMH obesity and asthma presented to the ER with increasing dyspnea and productive cough 1. Acute asthma exacerbation- due to medication non-compliance. can reduce medrol to BID dosing. cont azithro and levaquin. inhalers. educated on appropriate use of inhlaers. will need official PFT as outpatient. pulmonary on board. . 2. obesity- BMI 39. baritric referral as outpatient 3. DVT ppx- hep sq 4. anticipate d/c tomorrow pending improvement.patient has family tomorrow that she does not want to miss
--- NOTE | 2018-06-30 15:46 | CONS ---
DATE OF CONSULTATION: 06/30/2018 REFERRING PHYSICIAN: Dulce House MD HISTORY: The patient is a 43-year-old black female with a past medical history of chronic, persistent asthma maintained on inhaled beta agonist. She uses it 2-3 times daily. History of tobacco use approximately a 1/2 pack for approximately 15 years who quit a few years ago admitted to [facility] with the complaint of shortness of breath, cough, and wheezing. The patient states she was doing relatively well until the Thursday prior to admission when she started developing URI symptoms. At that time, she had chest congestion, cough productive of clear sputum, and wheezing. She started using inhaled beta agonist on a more frequent basis, which did not offer much improvement. On the day of admission, she started developing increased shortness of breath and chest tightness at which time she presented to the emergency room and was subsequently admitted. She denies any fever, chills, weight loss, night sweats. Denies hemoptysis. She denies any history of recent travel. There is no history of DVT or PE in the past. She has never been hospitalized in the past for asthma. She states that triggers for her asthma symptoms are cold air , URI as well as perfumes. She denies any frequent nocturnal symptoms. She states when she measures her peak flow at home it is usual in the 150 range. PAST MEDICAL HISTORY: Again, includes chronic, persistent asthma. SOCIAL HISTORY: History of smoking. Quit years ago. No history of occasional exposures. MEDICATIONS: Prior to admission include albuterol. Current medications include Symbicort 80/45, Solu-Medrol 40 b.i.d., Zithromax, Levaquin, heparin, Spiriva, and DuoNeb. ALLERGIES: Include SHELLFISH, PENICILLIN severe reaction, and LOBSTER allergy. PHYSICAL EXAMINATION: General: The patient is a well-developed, well-nourished female awake and awake in no acute distress. Vital Signs: She is afebrile. Blood pressure 122/58, respiratory rate 20, O2 saturation 96 on room air. HEENT: Normocephalic and atraumatic. Neck: Supple. Heart: Regular S1, S2. Chest: Diffuse bilateral wheezes. Abdomen: Soft. Bowel sounds positive. Extremities: No cyanosis or edema. LABORATORIES: WBC 23.4, hemoglobin 11.7, hematocrit 35.4 with a platelet count of 356,000, BUN 16, creatinine 0.9. Chest x-ray: No infiltrates and no effusions. IMPRESSION: Chronic, persistent asthma with acute exacerbation most likely triggered by recent upper respiratory infection. PLAN: IV steroids, inhaled bronchodilators, supplemental O2. Monitor peak flow. PFT as an outpatient. The patient will require anti-inflammatory medications for asthma control. Would consider inhaler corticosteroid with long-acting beta agonist. Also check serum IgE level post discharge. LILLY GORDON M.D. [id number] MTDD
--- NOTE | 2018-06-30 18:50 | PN ---
Physical Exam: SUBJECTIVE: Patient seen and examined at bedside this morning. No acute events overnight. Patient reports feeling better. No new complaints otherwise. OBJECTIVE: Vital Signs Period Temp Pulse Resp BP Sys/Guerra Pulse Ox Last 24 Hr 98.1 F-98.5 F 72-96 18-20 102-130/58-76 96-96 GENERAL: The patient is awake, alert, and fully oriented, in no acute distress. HEAD: Normal with no signs of trauma. EYES: PERRLA, EOMI, sclera anicteric, conjunctiva clear. ENT: Ears normal, nares patent, oropharynx clear without exudates, moist mucous membranes. NECK: Trachea midline, full range of motion, supple. LUNGS: +scattered wheezes bilaterally, improved HEART: Regular rate and rhythm, S1, S2 without murmur, rub or gallop. ABDOMEN: Soft, nontender, nondistended, normoactive bowel sounds. EXTREMITIES: 2+ pulses, warm, well-perfused, no edema. NEUROLOGICAL: Cranial nerves II through XII grossly intact. Normal speech, gait not observed. PSYCH: Normal mood, normal affect. SKIN: Warm, dry, normal turgor, no rashes or lesions noted Laboratory Results - last 24 hr 06/30/18 06/30/18 06:30 06:30 WBC 23.4 H RBC 3.88 Hgb 11.7 Hct 35.4 MCV 91.1 MCH 30.3 MCHC 33.2 RDW 13.8 Plt Count 356 MPV 8.0 Sodium 138 Potassium 4.5 Chloride 109 H Carbon Dioxide 25 Anion Gap 4 L BUN 16 Creatinine 0.9 Creat Clearance w eGFR > 60 Random Glucose 93 Calcium 9.5 Phosphorus 2.8 Magnesium 2.5 H Active Medications Generic Name Dose Route Start Last Admin Trade Name Freq PRN Reason Stop Dose Admin Albuterol Sulfate 1 amp 06/30/18 14:55 06/30/18 15:00 Ventolin 0.083% Nebulizer Soln - NEB 1 amp Q4H PRN Administration SHORT OF BREATH/WHEEZING Budesonide/Formoterol Fumarate 2 puff 06/30/18 22:00 Symbicort 160/4.5mcg - IH BID ASA Heparin Sodium (Porcine) 5,000 unit 06/29/18 06:00 06/30/18 15:32 Heparin - SQ 5,000 unit TID ASA Administration Levofloxacin 500 mg in 100 mls @ 100 mls/hr 06/29/18 13:00 06/30/18 10:22 Levaquin 500 Mg Premixed Ivpb - IVPB 100 mls/hr DAILY ASA Administration Protocol Azithromycin 500 mg in 250 mls @ 250 mls/hr 06/29/18 14:30 06/30/18 10:23 Zithromax 500mg Ivpb (Pre-Docked) IVPB 250 mls/hr DAILY ASA Administration Methylprednisolone Sodium Succinate 40 mg 06/30/18 15:00 06/30/18 15:32 Solu-Medrol - IVPB 40 mg Q6H-IV ASA Administration Tiotropium [place] 2 puff 06/29/18 10:00 06/30/18 10:23 Spiriva Respimat IH 2 puff DAILY SAA Administration ASSESSMENT/PLAN: Patient is a 43 year old female with past medical history of asthma, presented with a 2-day history of shortness of breath. #Acute asthma exacerbation -CXR - no active pulmonary disease -Methylprednisolone 40mg q6 -spiriva -symbicort -Azithromycin 500mg daily -Ceftriaxone switched to Levaquin 500mg as patient has penicillin allergy -Duonebs q6 PRN -Pulmonology consulted. Recommendations appreciated. #FEN -Not on any standing fluids -Encourage increased oral fluid intake -Electrolytes wnl, routine bmp monitorin -Regular diet #Prophylaxis -Heparin 5000units sq tid #Disposition -full code -admit to med-surg Visit type - Emergency Visit Emergency Visit: Yes ED Registration Date: 06/28/18 Care time: The patient presented to the Emergency Department on the above date and was hospitalized for further evaluation of their emergent condition. - New Patient This patient is new to me today: Yes Date on this admission: 07/01/18 - Critical Care Critical Care patient: No
[2018-06-30] MEDS ORDERED: PT OWN MED DRAWER 7, Y5N ONE (21:23)
[2018-06-30] MEDS: BUDESONIDE/FORMETEROL FUMARATE 160/4.5 mcg INHALER IH SCH (21:24)
[2018-07-01] MEDS: methylPREDNISolone NA SUCC 40 MG/1 ML VIAL IVPB SCH ×4 (02:24→21:10)
[2018-07-01] MEDS: HEPARIN NA (PORCINE) 5,000 UNITS/ML 1ML VIAL SQ SCH ×3 (05:50→21:10)
[2018-07-01] MEDS: ALBUTEROL SO4 0.083% IH SOL 2.5 MG/3 ML VIAL.NEB. NEB PRN (07:52)
[2018-07-01] MEDS ORDERED: PT OWN MED DRAWER 7, Y5N ONE ×4 (09:02→21:45)
--- NOTE | 2018-07-01 10:07 | PN ---
Progress Note (short form) - Note Progress Note: Still with wheezing. No CP. Dry cough. Intake & Output 06/28/18 06/29/18 06/30/18 07/01/18 23:59 23:59 23:59 23:59 Intake Total 300 350 Balance 300 350 Weight 225 lb 200 lb 4 oz Last Vital Signs Temp Pulse Resp BP Pulse Ox 98 F 84 20 122/68 96 07/01/18 06:39 07/01/18 06:39 07/01/18 06:39 07/01/18 06:39 06/30/18 22:20 Active Medications Albuterol Sulfate (Ventolin 0.083% Nebulizer Soln -) 1 amp NEB Q4H PRN PRN Reason: SHORT OF BREATH/WHEEZING Last Admin: 07/01/18 07:52 Dose: 1 amp Budesonide/Formoterol Fumarate (Symbicort 160/4.5mcg -) 2 puff IH BID [facility] Last Admin: 06/30/18 21:24 Dose: 2 puff Heparin Sodium (Porcine) (Heparin -) 5,000 unit SQ TID ASA Last Admin: 07/01/18 05:50 Dose: 5,000 unit Levofloxacin (Levaquin 500 Mg Premixed Ivpb -) 500 mg in 100 mls @ 100 mls/hr IVPB DAILY [facility]; Protocol Last Admin: 06/30/18 10:22 Dose: 100 mls/hr Azithromycin (Zithromax 500mg Ivpb (Pre-Docked)) 500 mg in 250 mls @ 250 mls/ hr IVPB DAILY ASA Last Admin: 06/30/18 10:23 Dose: 250 mls/hr Methylprednisolone Sodium Succinate (Solu-Medrol -) 40 mg IVPB Q6H-IV ASA Last Admin: 07/01/18 02:24 Dose: 40 mg Tiotropium [place] (Spiriva Respimat) 2 puff IH DAILY ASA Last Admin: 06/30/18 10:23 Dose: 2 puff GENERAL: awake, alert, and oriented, No acute distress. HEAD: Normal with no signs of trauma. EYES: PERRLA, EOMI, sclera anicteric, conjunctiva clear. ENT: Ears normal, nares patent, oropharynx clear without exudates, moist mucous membranes. NECK: Trachea midline, full range of motion, supple. LUNGS: (+) expiratory wheeze Left > right, few rhonchi HEART: Regular rate and rhythm, S1, S2 without murmur, rub or gallop. ABDOMEN: Soft, nontender, nondistended, normoactive bowel sounds. EXTREMITIES: 2+ pulses, warm, well-perfused, no edema. NEUROLOGICAL: Non-focal PSYCH: Normal mood, normal affect. SKIN: Warm, dry, normal turgor, no rashes or lesions noted Problem List - Problems (1) Mild persistent chronic asthma with acute exacerbation Code(s): J45.31 - MILD PERSISTENT ASTHMA WITH (ACUTE) EXACERBATION (2) Asthma exacerbation Code(s): J45.901 - UNSPECIFIED ASTHMA WITH (ACUTE) EXACERBATION Qualifiers: Asthma severity: mild Asthma persistence: persistent Qualified Code(s): J45.31 - Mild persistent asthma with (acute) exacerbation (3) Viral upper respiratory infection Code(s): J06.9 - ACUTE UPPER RESPIRATORY INFECTION, UNSPECIFIED; B97.89 - OTH VIRAL AGENTS THE CAUSE OF DISEASES CLASSD ELSWHR IMP CHRONIC PERSISTENT ASTHMA WITH ACUTE EXACERBATION SECONDARY TO URI LIKELY VIRAL PLAN IV STEROIDS INHALED BRONCHODILATORS O2 NEEDED MONITOR PEAK FLOW PFTS OUTPATIENT SERUM IGE LEVEL OUTPATIENT Dr [place]
[2018-07-01] MEDS: BUDESONIDE/FORMETEROL FUMARATE 160/4.5 mcg INHALER IH SCH ×2 (10:52→21:45)
[2018-07-01] MEDS: TIOTROPIUM BROMIDE 2.5 MCG (SPIRIVA) RESPIMAT INHALER IH SCH (10:52)
[2018-07-01] MEDS: AZITHROMYCIN IVPB 500 MG/250 ML BAG IVPB SCH (10:53)
--- NOTE | 2018-07-01 16:56 | PN ---
Physical Exam: SUBJECTIVE: Patient seen and examined at bedside this morning. No acute events overnight. Patient feels "depressed" today because she is not yet medically optimized. She chooses to stay in the hospital until she's clear for discharge. Otherwise, she has no new complaints. OBJECTIVE: Vital Signs Period Temp Pulse Resp BP Sys/Guerra Pulse Ox Last 24 Hr 98 F-98.8 F 65-89 18-20 122-130/68-80 96-96 GENERAL: The patient is awake, alert, and fully oriented, in no acute distress. HEAD: Normal with no signs of trauma. EYES: PERRLA, EOMI, sclera anicteric, conjunctiva clear. ENT: Ears normal, nares patent, oropharynx clear without exudates, moist mucous membranes. NECK: Trachea midline, full range of motion, supple. LUNGS: +scattered wheezes bilaterally HEART: Regular rate and rhythm, S1, S2 without murmur, rub or gallop. ABDOMEN: Soft, nontender, nondistended, normoactive bowel sounds. EXTREMITIES: 2+ pulses, warm, well-perfused, no edema. NEUROLOGICAL: Cranial nerves II through XII grossly intact. Normal speech, gait not observed. PSYCH: Normal mood, normal affect. SKIN: Warm, dry, normal turgor, no rashes or lesions noted Active Medications Generic Name Dose Route Start Last Admin Trade Name Freq PRN Reason Stop Dose Admin Albuterol Sulfate 1 amp 06/30/18 14:55 07/01/18 07:52 Ventolin 0.083% Nebulizer Soln - NEB 1 amp Q4H PRN Administration SHORT OF BREATH/WHEEZING Budesonide/Formoterol Fumarate 2 puff 06/30/18 22:00 07/01/18 10:52 Symbicort 160/4.5mcg - IH 2 puff BID ASA Administration Heparin Sodium (Porcine) 5,000 unit 06/29/18 06:00 07/01/18 15:37 Heparin - SQ 5,000 unit TID ASA Administration Levofloxacin 500 mg in 100 mls @ 100 mls/hr 06/29/18 13:00 07/01/18 10:52 Levaquin 500 Mg Premixed Ivpb - IVPB 100 mls/hr DAILY ASA Administration Protocol Azithromycin 500 mg in 250 mls @ 250 mls/hr 06/29/18 14:30 07/01/18 10:53 Zithromax 500mg Ivpb (Pre-Docked) IVPB 250 mls/hr DAILY ASA Administration Methylprednisolone Sodium Succinate 40 mg 06/30/18 15:00 07/01/18 15:37 Solu-Medrol - IVPB 40 mg Q6H-IV ASA Administration Tiotropium [place] 2 puff 06/29/18 10:00 07/01/18 10:52 Spiriva Respimat IH 2 puff DAILY ASA Administration ASSESSMENT/PLAN: Patient is a 43 year old female with past medical history of asthma, presented with a 2-day history of shortness of breath. #Acute asthma exacerbation -CXR - no active pulmonary disease -Methylprednisolone 40mg q6 -spiriva -symbicort -Azithromycin 500mg daily -Ceftriaxone switched to Levaquin 500mg as patient has penicillin allergy -Duonebs q6 PRN -Pulmonology consulted. Recommendations appreciated. #FEN -Not on any standing fluids -Encourage increased oral fluid intake -Electrolytes wnl, routine bmp monitorin -Regular diet #Prophylaxis -Heparin 5000units sq tid #Disposition -full code -admit to med-surg Visit type - Emergency Visit Emergency Visit: Yes ED Registration Date: 06/28/18 Care time: The patient presented to the Emergency Department on the above date and was hospitalized for further evaluation of their emergent condition. - New Patient This patient is new to me today: Yes Date on this admission: 07/01/18 - Critical Care Critical Care patient: No
--- NOTE | 2018-07-01 18:13 | PN ---
Teaching Attending Note Name of Resident: Nadia Hamm ATTENDING PHYSICIAN STATEMENT I saw and evaluated the patient. I reviewed the resident's note and discussed the case with the resident. I agree with the resident's findings and plan as documented. SUBJECTIVE: states she feels worse today. unable to ambulate to the bathroom without difficulty. worsenign cough. yoseph CP, fever, chills, N/V/C/D/ OBJECTIVE: Last Vital Signs Temp Pulse Resp BP Pulse Ox 97.2 F L 72 20 116/79 96 07/01/18 17:02 07/01/18 17:02 07/01/18 17:02 07/01/18 17:02 06/30/18 22:20 General NAD CV S1 S2 RRR no murmur/rub/gallop Lungs diffuse wheezing no crackles good inspiratory effort ASSESSMENT AND PLAN: 43yo F wtih PMH obesity and asthma presented to the ER with increasing dyspnea and productive cough 1. Acute asthma exacerbation- due to medication non-compliance. medrol was increased in the evening yesterday when pulm evaluated due to wheezing. lungs sound good today but did just receive neb treatment. due to decrease exertion will cont medrol at same dosing. Q6H, cont azithro and levaquin. inhalers. educated on appropriate use of inhlaers. will need official PFT as outpatient. pulmonary on board. . 2. obesity- BMI 39. baritric referral as outpatient 3. DVT ppx- hep sq
[2018-07-02] MEDS: methylPREDNISolone NA SUCC 40 MG/1 ML VIAL IVPB SCH ×2 (02:59→10:22)
[2018-07-02] MEDS: HEPARIN NA (PORCINE) 5,000 UNITS/ML 1ML VIAL SQ SCH ×3 (06:05→21:05)
[2018-07-02 07:41] LABS: HEMATOCRIT 35.8 % (32.4-45.2); HEMOGLOBIN 11.9 GM/dL (10.7-15.3); MCHC 33.1 g/dl (32.0-36.0); MEAN CELL VOLUME 90.5 fl (80-96); PLATELET COUNT 333 K/MM3 (134-434); RBC 3.95 M/mm3 (3.60-5.2); RDW 13.5 % (11.6-15.6); WHITE BLOOD COUNT 14.2 K/mm3 (4.0-10.0)
[2018-07-02] MEDS: ALBUTEROL SO4 0.083% IH SOL 2.5 MG/3 ML VIAL.NEB. NEB PRN (07:41)
[2018-07-02 08:23] LABS: ANION GAP 7 MMOL/L (8-16); BLOOD UREA NITROGEN 21 mg/dL (7-18); CALCIUM 8.9 mg/dL (8.5-10.1); CHLORIDE 108 mmol/L (98-107); CO2 25 mmol/L (21-32); GLUCOSE,RANDOM 100 mg/dL (74-106); MAGNESIUM 2.6 mg/dL (1.8-2.4); PHOSPHOROUS 3.8 mg/dL (2.5-4.9); POTASSIUM 4.4 mmol/L (3.5-5.1); SODIUM 139 mmol/L (136-145)
[2018-07-02] MEDS: TIOTROPIUM BROMIDE 2.5 MCG (SPIRIVA) RESPIMAT INHALER IH SCH (10:22)
[2018-07-02] MEDS: BUDESONIDE/FORMETEROL FUMARATE 160/4.5 mcg INHALER IH SCH ×2 (10:22→21:05)
[2018-07-02] MEDS: AZITHROMYCIN IVPB 500 MG/250 ML BAG IVPB SCH (10:23)
--- NOTE | 2018-07-02 13:04 | PN ---
Physical Exam: SUBJECTIVE: Patient seen and examined at bedside this morning. No acute events overnight. Patient has no new complaints and reports feeling better. OBJECTIVE: Vital Signs Period Temp Pulse Resp BP Sys/Guerra Pulse Ox Last 24 Hr 97.2 F-98.2 F 59-72 20-20 116-132/70-80 96 GENERAL: The patient is awake, alert, and fully oriented, in no acute distress. HEAD: Normal with no signs of trauma. EYES: PERRLA, EOMI, sclera anicteric, conjunctiva clear. ENT: Ears normal, nares patent, oropharynx clear without exudates, moist mucous membranes. NECK: Trachea midline, full range of motion, supple. LUNGS: +scattered wheezes bilaterally HEART: Regular rate and rhythm, S1, S2 without murmur, rub or gallop. ABDOMEN: Soft, nontender, nondistended, normoactive bowel sounds. EXTREMITIES: 2+ pulses, warm, well-perfused, no edema. NEUROLOGICAL: Cranial nerves II through XII grossly intact. Normal speech, gait not observed. PSYCH: Normal mood, normal affect. SKIN: Warm, dry, normal turgor, no rashes or lesions noted Laboratory Results - last 24 hr 07/02/18 07/02/18 06:30 06:30 WBC 14.2 H RBC 3.95 Hgb 11.9 Hct 35.8 MCV 90.5 MCH 30.0 MCHC 33.1 RDW 13.5 Plt Count 333 MPV 8.0 Sodium 139 Potassium 4.4 Chloride 108 H Carbon Dioxide 25 Anion Gap 7 L BUN 21 H Creatinine 1.0 Creat Clearance w eGFR > 60 Random Glucose 100 Calcium 8.9 Phosphorus 3.8 Magnesium 2.6 H Active Medications Generic Name Dose Route Start Last Admin Trade Name Freq PRN Reason Stop Dose Admin Albuterol Sulfate 1 amp 06/30/18 14:55 07/02/18 07:41 Ventolin 0.083% Nebulizer Soln - NEB 1 amp Q4H PRN Administration SHORT OF BREATH/WHEEZING Budesonide/Formoterol Fumarate 2 puff 06/30/18 22:00 07/02/18 10:22 Symbicort 160/4.5mcg - IH 2 puff BID ASA Administration Heparin Sodium (Porcine) 5,000 unit 06/29/18 06:00 07/02/18 06:05 Heparin - SQ 5,000 unit TID ASA Administration Levofloxacin 500 mg in 100 mls @ 100 mls/hr 06/29/18 13:00 07/02/18 10:22 Levaquin 500 Mg Premixed Ivpb - IVPB 100 mls/hr DAILY ASA Administration Protocol Azithromycin 500 mg in 250 mls @ 250 mls/hr 06/29/18 14:30 07/02/18 10:23 Zithromax 500mg Ivpb (Pre-Docked) IVPB 250 mls/hr DAILY ASA Administration Methylprednisolone Sodium Succinate 40 mg 07/02/18 18:00 Solu-Medrol - IVPB Q8H-IV ASA Tiotropium [place] 2 puff 06/29/18 10:00 07/02/18 10:22 Spiriva Respimat IH 2 puff DAILY ASA Administration ASSESSMENT/PLAN: Patient is a 43 year old female with past medical history of asthma, presented with a 2-day history of shortness of breath. #Acute asthma exacerbation -CXR - no active pulmonary disease -Taper down Methylprednisolone 40mg q8 -spiriva -symbicort -Azithromycin 500mg daily discontinued -Ceftriaxone switched to Levaquin 500mg as patient has penicillin allergy -Duonebs q6 PRN -Pulmonology consulted. Recommendations appreciated. #FEN -Not on any standing fluids -Encourage increased oral fluid intake -Electrolytes wnl, routine bmp monitoring -Regular diet #Prophylaxis -Heparin 5000units sq tid #Disposition -full code -admit to med-surg Visit type - Emergency Visit Emergency Visit: Yes ED Registration Date: 06/28/18 Care time: The patient presented to the Emergency Department on the above date and was hospitalized for further evaluation of their emergent condition. - New Patient This patient is new to me today: Yes Date on this admission: 07/02/18 - Critical Care Critical Care patient: No
--- NOTE | 2018-07-02 16:35 | PN ---
Progress Note, Physician History of Present Illness: pulmonary alert,feeling better,-sob,less cough - Current Medication List Current Medications: Active Medications Albuterol Sulfate (Ventolin 0.083% Nebulizer Soln -) 1 amp NEB Q4H PRN PRN Reason: SHORT OF BREATH/WHEEZING Last Admin: 07/02/18 07:41 Dose: 1 amp Budesonide/Formoterol Fumarate (Symbicort 160/4.5mcg -) 2 puff IH BID ASA Last Admin: 07/02/18 10:22 Dose: 2 puff Heparin Sodium (Porcine) (Heparin -) 5,000 unit SQ TID ASA Last Admin: 07/02/18 14:36 Dose: 5,000 unit Levofloxacin (Levaquin 500 Mg Premixed Ivpb -) 500 mg in 100 mls @ 100 mls/hr IVPB DAILY [facility]; Protocol Last Admin: 07/02/18 10:22 Dose: 100 mls/hr Azithromycin (Zithromax 500mg Ivpb (Pre-Docked)) 500 mg in 250 mls @ 250 mls/ hr IVPB DAILY ASA Last Admin: 07/02/18 10:23 Dose: 250 mls/hr Methylprednisolone Sodium Succinate (Solu-Medrol -) 40 mg IVPB Q8H-IV ASA Tiotropium [place] (Spiriva Respimat) 2 puff IH DAILY [facility] Last Admin: 07/02/18 10:22 Dose: 2 puff - Objective Vital Signs: Vital Signs Temperature 98.3 F 07/02/18 14:32 Pulse Rate 72 07/02/18 14:32 Respiratory Rate 16 07/02/18 14:32 Blood Pressure 106/66 07/02/18 14:32 O2 Sat by Pulse Oximetry (%) 96 07/01/18 21:00 Constitutional: Yes: Well Nourished, Calm Eyes: Yes: WNL HENT: Yes: Nasal Congestion Neck: Yes: WNL Cardiovascular: Yes: Regular Rate and Rhythm, S1, S2 Respiratory: Yes: Wheezes (few wheezes) Gastrointestinal: Yes: Normal Bowel Sounds, Soft Extremities: Yes: WNL Edema: No Labs: CBC, BMP 07/02/18 06:30 07/02/18 06:30 Problem List - Problems (1) Mild persistent chronic asthma with acute exacerbation Code(s): J45.31 - MILD PERSISTENT ASTHMA WITH (ACUTE) EXACERBATION (2) Asthma exacerbation Code(s): J45.901 - UNSPECIFIED ASTHMA WITH (ACUTE) EXACERBATION Qualifiers: Asthma severity: mild Asthma persistence: persistent Qualified Code(s): J45.31 - Mild persistent asthma with (acute) exacerbation (3) Viral upper respiratory infection Code(s): J06.9 - ACUTE UPPER RESPIRATORY INFECTION, UNSPECIFIED; B97.89 - OTH VIRAL AGENTS THE CAUSE OF DISEASES CLASSD ELSWHR Assessment/Plan IMP CHRONIC PERSISTENT ASTHMA WITH ACUTE EXACERBATION SECONDARY TO URI LIKELY VIRAL PLAN STEROID TAPER INHALED BRONCHODILATORS O2 NEEDED MONITOR PEAK FLOW PFTS OUTPATIENT SERUM IGE LEVEL OUTPATIENT DR GORDON Problem List - Problems (1) Mild persistent chronic asthma with acute exacerbation Code(s): J45.31 - MILD PERSISTENT ASTHMA WITH (ACUTE) EXACERBATION (2) Asthma exacerbation Code(s): J45.901 - UNSPECIFIED ASTHMA WITH (ACUTE) EXACERBATION Qualifiers: Asthma severity: mild Asthma persistence: persistent Qualified Code(s): J45.31 - Mild persistent asthma with (acute) exacerbation (3) Viral upper respiratory infection Code(s): J06.9 - ACUTE UPPER RESPIRATORY INFECTION, UNSPECIFIED; B97.89 - OTH VIRAL AGENTS THE CAUSE OF DISEASES CLASSD ELSWHR
--- NOTE | 2018-07-02 17:35 | PN ---
Teaching Attending Note Name of Resident: Nadia Hamm ATTENDING PHYSICIAN STATEMENT I saw and evaluated the patient. I reviewed the resident's note and discussed the case with the resident. I agree with the resident's findings and plan as documented. SUBJECTIVE:some dyspnea on exertion but improved. states cough is also improving. denies Cp, SOB, fever, chills, N/V/C/D IV line infiltrated on LUE. notified RN to remove OBJECTIVE: Last Vital Signs Temp Pulse Resp BP Pulse Ox 98.2 F 105 H 20 123/98 96 07/02/18 17:01 07/02/18 17:01 07/02/18 17:01 07/02/18 17:01 07/01/18 21:00 General NAD CV S1 S2 RRR no murmur/rub/gallop Lungs scattered wheezing no crackles good inspiratory effort ASSESSMENT AND PLAN: 43yo F wtih PMH obesity and asthma presented to the ER with increasing dyspnea and productive cough 1. Acute asthma exacerbation- due to medication non-compliance.clinically improved. will decrease medrol to Q8H. cont azithro and levaquin. inhalers. educated on appropriate use of inhlaers. will need official PFT as outpatient. pulmonary on board. 2. obesity- BMI 39. bariatric referral as outpatient 3. DVT ppx- hep sq 4. anticipate discharge in next 24-48H
[2018-07-02] MEDS ORDERED: methylPREDNISolone NA SUCC 40 MG/1 ML VIAL IVPB SCH (18:00)
[2018-07-02] MEDS ORDERED: PT OWN MED DRAWER 7, Y5N ONE (20:10)
[2018-07-02] MEDS: methylPREDNISolone NA SUCC 40 MG/1 ML VIAL IVPUSH SCH (21:05)
[2018-07-02 23:06] VITALS: BMI 39.0
[2018-07-03] MEDS: HEPARIN NA (PORCINE) 5,000 UNITS/ML 1ML VIAL SQ SCH (06:22)
--- NOTE | 2018-07-03 08:25 | PN ---
Teaching Attending Note Name of Resident: Nadia Hamm ATTENDING PHYSICIAN STATEMENT I saw and evaluated the patient. I reviewed the resident's note and discussed the case with the resident. I agree with the resident's findings and plan as documented. SUBJECTIVE:feels much better. continues to have cough. ambulating hallways without difficulty. denies Cp, SOB, fever, chills, OBJECTIVE: Last Vital Signs Temp Pulse Resp BP Pulse Ox 98.1 F 57 L 18 125/69 97 07/03/18 06:59 07/03/18 06:59 07/03/18 06:59 07/03/18 06:59 07/02/18 21:00 General NAD Lungs CTA B/L no wheezing/rales/rhonchi good inspiratory effort ASSESSMENT AND PLAN: 43yo F wtih PMH obesity and asthma presented to the ER with increasing dyspnea and productive cough 1. Acute asthma exacerbation- due to medication non-compliance.clinically improved. will give medrol this AM and levaquin and then d/c to start steroid taper tomorrow. decrease by 10mg Q4D. educated on importance and difference between maintence inhalers and rescue inhalers. to avoid NSAID while on steroids and rinse mouth after inhaler use. f/u with pulm as outpatient. will need official PFT as outpatient. 2. obesity- BMI 39. bariatric referral as outpatient 3. DVT ppx- hep sq 4. D/C home
[2018-07-03 08:38] VITALS: BP 131/76; PULSE 74; TEMP 97.2
[2018-07-03] MEDS ORDERED: PT OWN MED DRAWER 7, Y5N ONE (08:40)
[2018-07-03] MEDS: methylPREDNISolone NA SUCC 40 MG/1 ML VIAL IVPUSH SCH (08:48)
[2018-07-03] MEDS: TIOTROPIUM BROMIDE 2.5 MCG (SPIRIVA) RESPIMAT INHALER IH SCH (08:48)
[2018-07-03] MEDS: BUDESONIDE/FORMETEROL FUMARATE 160/4.5 mcg INHALER IH SCH (08:48)
--- NOTE | 2018-07-03 19:10 | DS ---
Physical Exam: SUBJECTIVE: Subjective and physical exam findings as per attendings note. OBJECTIVE: Vital Signs Period Temp Pulse Resp BP Sys/Guerra Pulse Ox Last 24 Hr 97.2 F-98.1 F 57-75 18-20 120-131/69-88 97-98 PHYSICAL EXAM LABS CBC, BMP 07/02/18 06:30 07/02/18 06:30 HOSPITAL COURSE: Date of Admission:06/28/18 Date of Discharge: 07/03/18 Patient is a 43 year old female with past medical history of asthma, presented with a 2-day history of shortness of breath. Patient was admitted for management of acute asthma exacerbation. Pulmonology consulted. Patient was started on IV methylprednisolone, spiriva, symbicort and albuterol nebulization. Azithromycin and Levaquin were also given. Patient continued to improve throughout her hospital stay. On the 6th hospital day, patient was discharged with an oral prednisone taper and was instructed to follow-up with pulmonology for outpatient PFTs and serum IgE levels. Minutes to complete discharge: 40 Discharge Summary Reason For Visit: Asthma W/ACUTE EXACERBATION Condition: Improved - Instructions Diet, Activity, Other Instructions: You were admitted because you had shortness of breath. You had an acute flare- up of your asthma, likely that was caused by the flu you had a few weeks ago. You were given steroids, nebulizations, and antibiotics, to which you responded well. Please follow-up with pulmonology for further work-up of your asthma. A Pulmonary function test and some blood work are recommended. You will continue taking these medications to help control your asthma: Take your inhalers as instructed. Rinse your mouth with water after each use Albuterol is a RESCUE inhaler and should only be used when you feel short of breath. If you feel like you are using it too frequently or in the middle of the night call your security developer to be evaluated. IF you are using it and do not feel relief after 3-4 uses return to the ER. Steroid taper is to start tomorrow Prednisone 40mg (4 tabs) 07/04-07/07 prednisone 30mg (3 tabs) 07/08-07/11 Prednisone 20mg (2 tabs) 07/12- 07/15 Prednisone 10mg (1 tab) 07/16-07/19 AVOID NSAIDS WHILE TAKING STEROIDS (ibuprofen, naproxen, motrin, aleive, ETC) Follow-ups: -Follow-up with pulmonology (Dr. Mckeon) for further work-up of your asthma in 1 week. Please call the office to schedule an appointment. -Please follow-up with your primary care doctor in 1 week. Call 911 or go to the ED if with any worsening shortness of breath, chest pain, palpitations, weakness or any new concerns noted. Referrals: Brayan San MD [Staff Physician] - Theresa Silva MD [Primary Care Provider] - Disposition: HOME - Home Medications Comprehensive Discharge Medication List: Ambulatory Orders Montelukast Sodium [Singulair] 10 mg PO DAILY 06/29/18 Albuterol Sulfate Inhaler - [Ventolin HFA Inhaler -] 1 - 2 puff IH Q4H PRN #2 inhaler 07/03/18 Budesonide/Formeterol Fumarate [SYMBICORT 160/4.5mcg -] 2 puff IH BID #1 inhaler 07/03/18 Prednisone See Taper PO DAILY #40 tablet 07/03/18 Tiotropium [place] [Spiriva Respimat] 2 puff IH DAILY #1 inhaler 07/03/18 This patient is new to me today: Yes Date on this admission: 07/04/18 Emergency Visit: Yes ED Registration Date: 06/28/18 Care time: The patient presented to the Emergency Department on the above date and was hospitalized for further evaluation of their emergent condition. Critical Care patient: No - Discharge Referral Referred to [facility] No
== END 2018-07-03 10:08 | disposition home or self-care (01) | DRG 141 ==
LOC: JER 17:03 → JERFT 17:03 → JERBED 23:23 → UNDOADMIN 23:59 → J8W 06-29 10:16
PROVIDERS: ADMIT Internal Medicine; ATTEND Internal Medicine
DX: J45.31 Mild persistent asthma with (acute) exacerbation (principal); E66.9 Obesity, unspecified; Z68.39 Body mass index [BMI] 39.0-39.9, adult; J06.9 Acute upper respiratory infection, unspecified; Z91.14 Patient's other noncompliance with medication regimen; Z88.1 Allergy status to other antibiotic agents; Z87.891 Personal history of nicotine dependence
CPT/HCPCS: 36415; 71046-TC-FY; 80048; 80053; 83735; 84100; 84703; 85025; 85027; 93005; 93010; 94640; 99283-25; J1644; J7030

== ENCOUNTER 2019-03-25 11:21 | Emergency (ER) | payer OTHER ==
[2019-03-25 11:30] VITALS: BP 115/52; PULSE 72; TEMP 98.5; BMI 38.0
--- NOTE | 2019-03-25 12:44 | PDOC ---
History of Present Illness - General Chief Complaint: Chronic pain Stated Complaint: RT. FOOT PAIN Time Seen by Provider: 03/25/19 12:27 History Source: Patient - History of Present Illness Initial Comments: 03/25/19 12:54 Chief complaint: Foot pain Patient 44-year-old female with history of asthma who states that on March 17 she wore new [employer] sneakers, her foot has been bothering her since and it's difficult to walk. Patient denies history of this, any other complaints, otherwise feeling well. Some relief when she took Advil 400 mg last night. Her foot hurts when she wears any other shoes now. No swelling. GENERAL/CONSTITUTIONAL: No fever, weakness. dizziness HEAD, EYES, EARS, NOSE AND THROAT: No change in vision. No ear pain or discharge. No sore throat. CARDIOVASCULAR: No chest pain RESPIRATORY: No shortness of breath or cough GASTROINTESTINAL: No pain, nausea, vomiting, diarrhea or constipation GENITOURINARY: No dysuria MUSCULOSKELETAL: No neck or back pain SKIN: No rash NEUROLOGIC: No headache, vertigo, loss of consciousness, or loss of sensation. GENERAL: The patient is awake, alert, and fully oriented, in no acute distress. HEAD: Normal with no signs of trauma. EYES: Pupils equal, round and reactive to light, sclera anicteric, conjunctiva clear. ENT: pharynx: no erythema, no exudate, uvula midline NECK: supple CHEST: clear, nontender, rr ABD: soft, nontender BACK: no tenderness or signs of injury EXTREMITIES: Right foot with mild tenderness plantar and dorsal, over metatarsals, no signs of infection, no heel pain, no toe swelling, neurovascular intact. No calf pain or swelling. Rest of extremities, normal range of motion, no edema. NEUROLOGICAL: Normal speech, slight limp due to pain SKIN: Warm, Dry Past History - Past Medical History Allergies/Adverse Reactions: Allergies Allergy/AdvReac Type Severity Reaction Status Date / Time Penicillins AdvReac Severe Hives Verified 03/25/19 11:31 lobster Allergy Uncoded 03/25/19 11:31 Home Medications: Ambulatory Orders Montelukast Sodium [Singulair] 10 mg PO DAILY 06/29/18 Naproxen [Naprosyn] 500 mg PO BID #28 tablet 03/25/19 Asthma: Yes COPD: No - Surgical History Abdominal Surgery: Yes Cholecystectomy: No (GALLSTONES REMOVED) - Immunization History Immunization Up to Date: Yes - Suicide/Smoking/Psychosocial Hx Smoking History: Current some day smoker Have you smoked in the past 12 months: No Number of Cigarettes Smoked Daily: 0 Cigars Per Day: 0 Information on smoking cessation initiated: No Hx Alcohol Use: Yes (occasionally) Drug/Substance Use Hx: No Substance Use Type: None Hx Substance Use Treatment: No *Physical Exam - Vital Signs Last Vital Signs Temp Pulse Resp BP Pulse Ox 98.5 F 72 16 115/52 L 99 03/25/19 11:28 03/25/19 11:28 03/25/19 11:28 03/25/19 11:28 03/25/19 11:28 Procedures - Splinting Splint Location: Right: Foot Pre-Proc Neuro Vasc Exam: normal Pre-Made Type: velcro (orthopedic show) Neri Bandage: yes, 4" Medical Decision Making - Medical Decision Making 03/25/19 13:00 44-year-old female with history of asthma, with foot pain since wearing new sneakers on March 17. No signs of infection, unlikely fracture, but will x-ray due to significant pain. Patient took 400 mg of Advil last night and again it 5 AM with some relief. Patient off medication, will give Motrin 600 mg. Discussed issues, findings, results, applicable medications and treatments and follow-up. All these were understood and all questions were answered *DC/Admit/Observation/Transfer Diagnosis at time of Disposition: Foot pain, right - Discharge Dispostion Disposition: HOME Condition at time of disposition: Stable Decision to Admit order: No - Referrals Referrals: Jaden Ham DPM [Staff Physician] - - Patient Instructions Printed Discharge Instructions: DI for Tendinitis Additional Instructions: Elevate, wear splint You can apply ice for 20 minutes every 2 hours for the next 2 days Motrin 600 mg every 6 hours for pain. Call the orthopedist tomorrow - Post Discharge Activity
[2019-03-25] MEDS ORDERED: IBUPROFEN 600 MG TABLET (FP) PO ONE ×2 (12:45→12:48)
== END 2019-03-25 13:41 | disposition home or self-care (01) ==
LOC: JERFT 11:21
DX: M79.671 Pain in right foot (principal)
CPT/HCPCS: 73630-TC-RT-FY; 99282-25

== ENCOUNTER 2019-06-11 17:51 | Emergency (ER) | payer OTHER ==
[2019-06-11 17:58] VITALS: BP 102/67; PULSE 84; TEMP 98.4; BMI 37.2
[2019-06-11] MEDS ORDERED: predniSONE 20 MG TABLET (UD) PO ONE (18:10)
[2019-06-11] MEDS ORDERED: ALBUTEROL SO4 2.5/IPRATROPIUM 0.5 INH SOL 3 ML VIAL.NEB. NEB ONE (18:10)
--- NOTE | 2019-06-11 18:19 | PDOC ---
History of Present Illness - General Chief Complaint: Asthma Stated Complaint: ASTHMA Time Seen by Provider: 06/11/19 17:58 History Source: Patient Exam Limitations: No Limitations (cough, wheezing and SOB X 3 days) - History of Present Illness Is this a multiple visit Asthma Patient?: No Associated Symptoms: reports: cough, wheezing. denies: fever/chills, nasal congestion, nasal drainage, shortness of breath, sinus infection Past History - Travel Traveled outside of the country in the last 30 days: No Close contact w/someone who was outside of country & ill: No - Past Medical History Allergies/Adverse Reactions: Allergies Allergy/AdvReac Type Severity Reaction Status Date / Time Penicillins AdvReac Severe Hives Verified 03/25/19 11:31 lobster Allergy Uncoded 03/25/19 11:31 Home Medications: Ambulatory Orders Montelukast Sodium [Singulair] 10 mg PO DAILY 06/29/18 Naproxen [Naprosyn] 500 mg PO BID #28 tablet 03/25/19 Albuterol Sulfate Inhaler - [Ventolin HFA Inhaler -] 2 inh PO Q4H #1 inh Azithromycin 250 mg PO DAILY 5 Days #6 tablet 06/11/19 Benzonatate [Tessalon Pearls -] 100 mg PO TID #21 capsule 06/11/19 Prednisone [Deltasone] 20 mg PO DAILY 4 Days #8 tablet 06/11/19 Asthma: Yes COPD: No - Surgical History Abdominal Surgery: Yes Cholecystectomy: No (GALLSTONES REMOVED) - Immunization History Immunization Up to Date: Yes - Psycho Social/Smoking Cessation Hx Smoking History: Current every day smoker Have you smoked in the past 12 months: No Number of Cigarettes Smoked Daily: 4 Cigars Per Day: 0 Information on smoking cessation initiated: No Hx Alcohol Use: No Drug/Substance Use Hx: No Substance Use Type: None Hx Substance Use Treatment: No Review of Systems - Review of Systems Constitutional: No: Chills, Fever Respiratory: Yes: Cough, Shortness of Breath, Wheezing, Productive cough Cardiac (ROS): Yes: Chest Tightness. No: Chest Pain, Lightheadedness, Palpitations, Syncope Neurological: No: Headache, Weakness, Dizziness *Physical Exam - Vital Signs Last Vital Signs Temp Pulse Resp BP Pulse Ox 98.4 F 84 19 102/67 99 06/11/19 17:54 06/11/19 17:54 06/11/19 17:54 06/11/19 17:54 06/11/19 17:54 - Physical Exam General Appearance: Yes: Nourished HEENT: negative: Nasal Congestion, Rhinorrhea Neck: positive: Supple Respiratory/Chest: positive: Wheezing Cardiovascular: positive: Regular Rhythm, Regular Rate, S1, S2 Extremity: positive: Normal Capillary Refill, Normal Inspection, Normal Range of Motion Integumentary: positive: Normal Color 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, Fully Oriented, Alert, Normal Mood/ Affect, Normal Response, Motor Strength 01/16 ED Treatment Course - RADIOLOGY Radiology Studies Ordered: Category Date Time Status CHEST PA & LAT [RAD] Stat Radiology 06/11/19 18:11 Ordered Medical Decision Making - Medical Decision Making 06/11/19 18:18 44y/o F with h/o asthma, + smoker p/w cough, wheezing and chest tightness X 3 days denies f/c denies prior ETT or hospitalization ran out inhaler nebs, cxr and prednisone smoking cessation advised pt felt better after nebs wheezing improved given zpak given smoking hx 06/11/19 19:26 Discharge - Discharge Information Problems reviewed: Yes Clinical Impression/Diagnosis: Asthma exacerbation Qualifiers: Asthma severity: mild Asthma persistence: unspecified Qualified Code(s): J45.901 - Unspecified asthma with (acute) exacerbation Condition: Stable Disposition: HOME - Additional Discharge Information Prescriptions: Albuterol Sulfate Inhaler - [Ventolin HFA Inhaler -] 2 inh PO Q4H #1 inh Azithromycin 250 mg PO DAILY 5 Days #6 tablet Benzonatate [Tessalon Pearls -] 100 mg PO TID #21 capsule Prednisone [Deltasone] 20 mg PO DAILY 4 Days #8 tablet Prescription Drug Monitoring Program (I-STOP) results: I-STOP not reviewed - Follow up/Referral Referrals: Theresa Silva MD [Primary Care Provider] - - Patient Discharge Instructions Patient Printed Discharge Instructions: Asthma -- Adult Additional Instructions: Please stop smoking Please take medication as prescribed follow up with you primary care doctor Return to the ER If worsening symptoms occurs - Post Discharge Activity
== END 2019-06-11 19:21 | disposition home or self-care (01) ==
LOC: JERFT 17:51
PROC: 3E0F7GC Introduction of Other Therapeutic Substance into Respiratory Tract, Via Natural or Artificial Opening (ICD-10-PCS; principal; 2019-06-11)
DX: J45.901 Unspecified asthma with (acute) exacerbation (principal); F17.210 Nicotine dependence, cigarettes, uncomplicated; Z88.0 Allergy status to penicillin; Z91.013 Allergy to seafood
CPT/HCPCS: 71046-TC-FY; 84703; 94640; 99282-25

== ENCOUNTER 2019-07-31 15:27 | Emergency (ER) | payer OTHER ==
[2019-07-31 15:37] VITALS: BP 120/72; PULSE 112; TEMP 98.3; BMI 38.7
[2019-07-31] MEDS ORDERED: predniSONE 20 MG TABLET (UD) PO ONE (15:48)
[2019-07-31] MEDS ORDERED: ALBUTEROL SO4 2.5/IPRATROPIUM 0.5 INH SOL 3 ML VIAL.NEB. NEB ONE ×4 (15:48→16:20)
--- NOTE | 2019-07-31 15:51 | PDOC ---
History of Present Illness - General Chief Complaint: Asthma Stated Complaint: ASHMA PROBLEMS Time Seen by Provider: 07/31/19 15:38 History Source: Patient Exam Limitations: No Limitations (cough and wheezing X 1 day) - History of Present Illness Associated Symptoms: reports: cough, wheezing Past History - Travel Traveled outside of the country in the last 30 days: No Close contact w/someone who was outside of country & ill: No - Past Medical History Allergies/Adverse Reactions: Allergies Allergy/AdvReac Type Severity Reaction Status Date / Time Penicillins AdvReac Severe Hives Verified 07/31/19 15:30 lobster Allergy Uncoded 07/31/19 15:30 Home Medications: Ambulatory Orders Montelukast Sodium [Singulair] 10 mg PO DAILY 06/29/18 Naproxen [Naprosyn] 500 mg PO BID #28 tablet 03/25/19 Albuterol Sulfate Inhaler - [Ventolin HFA Inhaler -] 2 inh PO Q4H #1 inh Azithromycin 250 mg PO DAILY 5 Days #6 tablet 06/11/19 Benzonatate [Tessalon Pearls -] 100 mg PO TID #21 capsule 06/11/19 predniSONE [Deltasone] 20 mg PO DAILY 4 Days #8 tablet 06/11/19 Albuterol 0.083% Nebulizer Juliana [Ventolin 0.083% Nebulizer Soln -] 1 neb NEB Q4H 30 Days #1 box 07/31/19 Albuterol Sulfate Inhaler - [Ventolin HFA Inhaler -] 1 - 2 inh PO Q4H #1 inhaler 07/31/19 Albuterol Sulfate Inhaler - [Ventolin HFA Inhaler -] 2 inh PO Q4H PRN #1 inh Benzonatate [Tessalon Pearls -] 100 mg PO TID #21 capsule 07/31/19 predniSONE [Deltasone -] 20 mg PO DAILY 4 Days #8 tablet 07/31/19 Asthma: Yes COPD: No - Surgical History Abdominal Surgery: Yes Cholecystectomy: No (GALLSTONES REMOVED) - Immunization History Immunization Up to Date: Yes - Psycho Social/Smoking Cessation Hx Smoking History: Former smoker Have you smoked in the past 12 months: Yes Number of Cigarettes Smoked Daily: 10 Cigars Per Day: 0 Information on smoking cessation initiated: Yes Hx Alcohol Use: Yes Drug/Substance Use Hx: No Substance Use Type: None Hx Substance Use Treatment: No Respiratory Specific PMHX - Complaint Specific PMHX Hx Asthma: No Review of Systems - Review of Systems Constitutional: No: Chills, Fever Respiratory: Yes: Cough, Shortness of Breath, Wheezing, Productive cough Cardiac (ROS): No: Chest Pain, Irregular Heart Rate, Lightheadedness, Palpitations, Syncope Neurological: No: Headache, Dizziness *Physical Exam - Vital Signs Last Vital Signs Temp Pulse Resp BP Pulse Ox 98.3 F 112 H 22 H 120/72 100 07/31/19 15:30 07/31/19 15:30 07/31/19 15:30 07/31/19 15:30 07/31/19 15:30 - Physical Exam General Appearance: Yes: Nourished Neck: positive: Supple Respiratory/Chest: positive: Wheezing Cardiovascular: positive: Regular Rhythm, Regular Rate, S1, S2 Musculoskeletal: positive: Normal Inspection Extremity: positive: Normal Capillary Refill Neurologic: positive: 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 Patient presents with productive cough with wheezing since 2 AM today. She denies any chest pain,fever, chills Patient is audibly wheezing on exam DuoNeb, prednisone will reassess 07/31/19 17:03 pt reassessed after nebs X 2 wheezing improved, pt felt much better prelim xray neg for PNA Discharge - Discharge Information Problems reviewed: Yes Clinical Impression/Diagnosis: Asthma exacerbation Qualifiers: Asthma severity: mild Asthma persistence: intermittent Qualified Code(s): J45.21 - Mild intermittent asthma with (acute) exacerbation Condition: Stable Disposition: HOME - Admission No - Additional Discharge Information Prescriptions: Albuterol 0.083% Nebulizer Juliana [Ventolin 0.083% Nebulizer Soln -] 1 neb NEB Q4H 30 Days #1 box Albuterol Sulfate Inhaler - [Ventolin HFA Inhaler -] 1 - 2 inh PO Q4H #1 inhaler Benzonatate [Tessalon Pearls -] 100 mg PO TID #21 capsule predniSONE [Deltasone -] 20 mg PO DAILY 4 Days #8 tablet Prescription Drug Monitoring Program (I-STOP) results: I-STOP not reviewed - Follow up/Referral Referrals: Theresa Silva MD [Primary Care Provider] - - Patient Discharge Instructions Patient Printed Discharge Instructions: Asthma -- Adult Additional Instructions: You were treated for asthma exacerbation today Your preliminary x-ray was normal. If the official report reads otherwise you will be contacted Please take medications as prescribed Follow-up with primary care doctor Return to the emergency room if worsening symptoms occurs - Post Discharge Activity
[2019-07-31] MEDS ORDERED: predniSONE 20 MG TABLET (UD) ONE (15:54)
== END 2019-07-31 17:32 | disposition home or self-care (01) ==
LOC: JERFT 15:27
PROC: 3E0F7GC Introduction of Other Therapeutic Substance into Respiratory Tract, Via Natural or Artificial Opening (ICD-10-PCS; principal; 2019-07-31)
PROC: 3E0F7GC Introduction of Other Therapeutic Substance into Respiratory Tract, Via Natural or Artificial Opening (ICD-10-PCS; 2019-07-31)
DX: J45.21 Mild intermittent asthma with (acute) exacerbation (principal); Z88.0 Allergy status to penicillin; Z91.013 Allergy to seafood; Z87.891 Personal history of nicotine dependence
CPT/HCPCS: 71046-TC-FY; 94640; 99281-25

== ENCOUNTER 2021-11-12 22:13 | Inpatient (IN) | payer OTHER ==
[2021-11-12] MEDS ORDERED: methylPREDNISolone NA SUCC 125 MG/2 ML VIAL IVPUSH ONE (22:38)
[2021-11-12] MEDS ORDERED: MAGNESIUM SULF 50% (8.12 MEQ/2 ML-1 GM VIAL) IVPB ONE (22:38)
[2021-11-12] MEDS ORDERED: ALBUTEROL SO4 2.5/IPRATROPIUM 0.5 INH SOL 3 ML VIAL.NEB. NEB ONE (22:42)
[2021-11-12] MEDS ORDERED: MAGNESIUM SULFATE IN WATER 2 GM/50 ML IVPB IVPB ONE (22:42)
[2021-11-12] MEDS ORDERED: methylPREDNISolone NA SUCC 125 MG/2 ML VIAL ONE (22:42)
[2021-11-12] MEDS: ALBUTEROL SO4 2.5/IPRATROPIUM 0.5 INH SOL 3 ML VIAL.NEB. NEB SCH (22:53)
[2021-11-13] MEDS ORDERED: ALBUTEROL SO4 2.5/IPRATROPIUM 0.5 INH SOL 3 ML VIAL.NEB. NEB ONE ×3 (00:17→09:59)
[2021-11-13 00:31] LABS: EPI CELLS 9 /uL (0-25.1); HYALINE CASTS 0 /uL (0-3.1); PH,URINE 6.5 (5.0-8.0); URINE APPEARANCE CLEAR; URINE BACTERIA 2807 /uL (0-1359); URINE BILIRUBIN NEGATIVE (NEGATIVE); URINE COLOR YELLOW; URINE GLUCOSE (UA) NEGATIVE (NEGATIVE); URINE KETONE NEGATIVE (NEGATIVE); URINE LEUK ESTERASE NEGATIVE (NEGATIVE); URINE NITRITE NEGATIVE (NEGATIVE); URINE PROTEIN NEGATIVE (NEGATIVE); URINE RBC 23 /uL (0-23.9); URINE UROBILINOGEN 0.2 mg/dL (0.2-1.0); URINE WBC 19 /uL (0-25.8)
[2021-11-13 00:32] LABS: HCG,QUALITATIVE URINE Negative
[2021-11-13] MEDS: ALBUTEROL SO4 2.5/IPRATROPIUM 0.5 INH SOL 3 ML VIAL.NEB. NEB SCH ×2 (02:00→02:15)
[2021-11-13 02:23] LABS: HEMATOCRIT 33.7 % (32.4-45.2); HEMOGLOBIN 11.7 GM/dL (10.7-15.3); MCH 30.9 pg (25.7-33.7); MCHC 34.7 g/dl (32.0-36.0); MEAN CELL VOLUME 89.1 fl (80-96); MEAN PLT VOLUME 7.4 fl (7.5-11.1); PLATELET COUNT 327 10^3/uL (134-434); RBC 3.78 M/mm3 (3.60-5.2); RDW 15.5 % (11.6-15.6)
[2021-11-13 02:33] LABS: BLOOD UREA NITROGEN 11.9 mg/dL (7-18)
[2021-11-13 02:36] LABS: CREATININE 0.9 mg/dL (0.55-1.3)
[2021-11-13 02:37] LABS: BILIRUBIN,TOTAL 0.5 mg/dL (0.2-1)
[2021-11-13 02:38] LABS: TOT PROT 7.1 g/dl (6.4-8.2)
[2021-11-13] MEDS ORDERED: guaiFENesin/CODEINE 5 ML UNIT-DOSE CUPS PO PRN (05:02)
[2021-11-13 05:33] LABS: ANISOCYTOSIS 1+; MACROCYTOSIS 1+
[2021-11-13] MEDS: ALBUTEROL SO4 2.5/IPRATROPIUM 0.5 INH SOL 3 ML VIAL.NEB. NEB PRN ×2 (05:46→10:09)
[2021-11-13 06:57] LABS: MAGNESIUM 2.7 mg/dL (1.8-2.4)
[2021-11-13 08:35] LABS: HEMOGLOBIN 12.1 GM/dL (10.7-15.3); MCHC 34.6 g/dl (32.0-36.0); MEAN CELL VOLUME 89.6 fl (80-96); MEAN PLT VOLUME 7.5 fl (7.5-11.1); PLATELET COUNT 332 10^3/uL (134-434); RBC 3.91 M/mm3 (3.60-5.2); RDW 15.5 % (11.6-15.6); WHITE BLOOD COUNT 11.4 K/mm3 (4.0-10.0)
[2021-11-13 09:12] LABS: ALBUMIN 3.8 g/dl (3.4-5.0); BLOOD UREA NITROGEN 10.3 mg/dL (7-18); CALCIUM 9.2 mg/dL (8.5-10.1)
[2021-11-13 09:13] LABS: MAGNESIUM 2.7 mg/dL (1.8-2.4)
[2021-11-13 09:16] LABS: CREATININE 0.9 mg/dL (0.55-1.3); PHOSPHOROUS 2.1 mg/dL (2.5-4.9)
[2021-11-13 09:17] LABS: TOT PROT 7.3 g/dl (6.4-8.2)
[2021-11-13 09:18] LABS: BILIRUBIN,TOTAL 0.5 mg/dL (0.2-1)
[2021-11-13] MEDS ORDERED: ENOXAPARIN NA (PORCINE) 40 MG/0.4 ML DISP.SYRIN SQ ONE (09:57)
[2021-11-13] MEDS ORDERED: methylPREDNISolone NA SUCC 40 MG/1 ML VIAL ONE ×2 (09:58→18:09)
[2021-11-13] MEDS: methylPREDNISolone NA SUCC 40 MG/1 ML VIAL IVPUSH SCH ×2 (10:08→18:13)
[2021-11-13] MEDS: ENOXAPARIN NA (PORCINE) 40 MG/0.4 ML DISP.SYRIN SQ SCH (10:08)
[2021-11-13] MEDS: BUDESONIDE/FORMETEROL FUMARATE 160/4.5 mcg INHALER IH SCH ×2 (10:34→21:08)
[2021-11-13] MEDS ORDERED: NAPH,MB-DB/K PH,MBDB POWDER PACKET PO ONE (14:37)
[2021-11-13] MEDS: guaiFENesin 600 MG TABLET.ER (FP) PO SCH (21:07)
[2021-11-13 21:51] VITALS: BMI 38.8
[2021-11-13] MEDS ORDERED: MONTELUKAST NA 10 MG TABLET PO SCH (22:00)
[2021-11-14] MEDS: ALBUTEROL SO4 2.5/IPRATROPIUM 0.5 INH SOL 3 ML VIAL.NEB. NEB PRN ×2 (00:12→12:24)
[2021-11-14] MEDS: methylPREDNISolone NA SUCC 40 MG/1 ML VIAL IVPUSH SCH ×2 (01:55→09:16)
[2021-11-14] MEDS: BUDESONIDE/FORMETEROL FUMARATE 160/4.5 mcg INHALER IH SCH (09:15)
[2021-11-14] MEDS: guaiFENesin 600 MG TABLET.ER (FP) PO SCH (09:16)
[2021-11-14] MEDS: ENOXAPARIN NA (PORCINE) 40 MG/0.4 ML DISP.SYRIN SQ SCH (09:16)
[2021-11-14 10:56] LABS: HEMOGLOBIN 11.7 GM/dL (10.7-15.3); MCH 30.4 pg (25.7-33.7); MCHC 33.4 g/dl (32.0-36.0); MEAN CELL VOLUME 90.8 fl (80-96); MEAN PLT VOLUME 7.8 fl (7.5-11.1); PLATELET COUNT 348 10^3/uL (134-434); RBC 3.86 M/mm3 (3.60-5.2); RDW 15.8 % (11.6-15.6); WHITE BLOOD COUNT 15.8 K/mm3 (4.0-10.0)
[2021-11-14 11:22] LABS: CALCIUM 9.6 mg/dL (8.5-10.1); PHOSPHOROUS 3.1 mg/dL (2.5-4.9)
[2021-11-14 11:23] LABS: BLOOD UREA NITROGEN 16.7 mg/dL (7-18); MAGNESIUM 2.8 mg/dL (1.8-2.4)
[2021-11-14 11:26] LABS: CREATININE 1.1 mg/dL (0.55-1.3)
[2021-11-14 12:40] LABS: ANISOCYTOSIS 2+; MACROCYTOSIS 0; TOXIC GRANULATION 1+
[2021-11-14 14:51] VITALS: BP 124/69; PULSE 80; TEMP 98.3
[2021-11-15 13:07] LABS: SARS-CoV-2 NAA Not Detected (Not Detected)
== END 2021-11-14 15:50 | disposition home or self-care (01) | DRG 203 ==
LOC: JER 22:13 → JERBED 11-13 03:18 → UNDOADMOB 11-13 03:18 → OBSVTOIN 11-13 11:33 → INTOOBSV 11-13 11:33 → J5S 11-13 19:23
PROVIDERS: ADMIT Internal Medicine; ATTEND Internal Medicine
DX: J45.21 Mild intermittent asthma with (acute) exacerbation (principal); Z88.0 Allergy status to penicillin; F12.90 Cannabis use, unspecified, uncomplicated; D72.829 Elevated white blood cell count, unspecified; E66.9 Obesity, unspecified; Z68.38 Body mass index [BMI] 38.0-38.9, adult; D57.3 Sickle-cell trait; R00.0 Tachycardia, unspecified; R09.02 Hypoxemia; J06.9 Acute upper respiratory infection, unspecified
CPT/HCPCS: 36415; 71046-TC-FY; 80048; 80053; 81003; 83036; 83735; 84100; 84703; 85025; 85027; 87086; 87186; 87804; 87807; 93005; 93010; 94640; 94761; 99285-25; C9803; G0378; U0003; U0005

== ENCOUNTER 2021-12-28 02:59 | Inpatient (IN) | payer OTHER ==
[2021-12-28] MEDS ORDERED: SODIUM CHLORIDE 0.9% 500 ML INFUS.BAG IV ONE (04:09)
[2021-12-28] MEDS ORDERED: ONDANSETRON 4 MG/2 ML VIAL IVPUSH ONE (04:09)
[2021-12-28] MEDS ORDERED: ACETAMINOPHEN 1000 MG/100 ML BAG IVPB ONE (04:09)
[2021-12-28] MEDS ORDERED: ACETAMINOPHEN INJECTION 100 ML IVPB ONE (04:20)
[2021-12-28] MEDS ORDERED: ONDANSETRON 4 MG/2 ML VIAL ONE (04:20)
[2021-12-28 05:07] LABS: CALCIUM 8.6 mg/dL (8.5-10.1)
[2021-12-28 05:08] LABS: ALBUMIN 3.1 g/dl (3.4-5.0)
[2021-12-28 05:11] LABS: CREATININE 1.2 mg/dL (0.55-1.3)
[2021-12-28 05:12] LABS: BILIRUBIN,TOTAL 0.5 mg/dL (0.2-1); TOT PROT 6.7 g/dl (6.4-8.2)
[2021-12-28 05:17] LABS: BASO % 0.3 % (0-2.0); EOS % 0.2 % (0-4.5); HEMATOCRIT 34.9 % (32.4-45.2); LYMPH % 10.6 % (8-40); MCH 30.8 pg (25.7-33.7); MCHC 34.4 g/dl (32.0-36.0); MEAN CELL VOLUME 89.4 fl (80-96); MEAN PLT VOLUME 7.9 fl (7.5-11.1); MONO % 9.3 % (3.8-10.2); NEUT % 79.6 % (42.8-82.8); PLATELET COUNT 285 10^3/uL (134-434); RDW 15.4 % (11.6-15.6); WHITE BLOOD COUNT 18.5 K/mm3 (4.0-10.0)
[2021-12-28] MEDS ORDERED: POTASSIUM CHLORIDE TABS 20 MEQ TABLET.ER (FP) PO ONE ×4 (07:57→18:16)
[2021-12-28 09:45] LABS: EPI CELLS 3 /uL (0-25.1); HYALINE CASTS 1 /uL (0-3.1); PH,URINE 5.5 (5.0-8.0); URINE APPEARANCE CLOUDY; URINE BACTERIA >9,000 /uL (0-1359); URINE BILIRUBIN NEGATIVE (NEGATIVE); URINE COLOR DK YELLOW; URINE GLUCOSE (UA) NEGATIVE (NEGATIVE); URINE KETONE NEGATIVE (NEGATIVE); URINE LEUK ESTERASE 3+ (NEGATIVE); URINE NITRITE POSITIVE (NEGATIVE); URINE PROTEIN 1+ (NEGATIVE); URINE RBC 56 /uL (0-23.9); URINE WBC 1087 /uL (0-25.8)
[2021-12-28] MEDS ORDERED: CEFTRIAXONE 1,000 MG in DEXTROSE 5%-WATER - 50 ML IVPB ONE (10:00)
[2021-12-28] MEDS ORDERED: CEFTRIAXONE 1 GM/50 ML BAG ONE (10:40)
[2021-12-28] MEDS ORDERED: ONDANSETRON 4 MG/2 ML VIAL IVPUSH PRN (14:51)
[2021-12-28] MEDS ORDERED: ACETAMINOPHEN 325 MG TABLET (FP) ONE (17:30)
[2021-12-28] MEDS: ACETAMINOPHEN 325 MG TABLET (FP) PO PRN (17:49)
[2021-12-28] MEDS: SODIUM CHLORIDE 1,000 ML IV SCH (18:41)
[2021-12-29 00:01] VITALS: BMI 37.5
[2021-12-29] MEDS: ACETAMINOPHEN 325 MG TABLET (FP) PO PRN ×4 (01:35→22:52)
[2021-12-29] MEDS: SODIUM CHLORIDE 1,000 ML IV SCH ×2 (06:09→16:55)
[2021-12-29 08:55] LABS: HEMATOCRIT 30.1 % (32.4-45.2); HEMOGLOBIN 10.2 GM/dL (10.7-15.3); MCH 31.1 pg (25.7-33.7); MCHC 34.1 g/dl (32.0-36.0); MEAN CELL VOLUME 91.3 fl (80-96); MEAN PLT VOLUME 7.8 fl (7.5-11.1); PLATELET COUNT 261 10^3/uL (134-434); RBC 3.29 M/mm3 (3.60-5.2); RDW 15.5 % (11.6-15.6); WHITE BLOOD COUNT 10.5 K/mm3 (4.0-10.0)
[2021-12-29 09:07] LABS: CALCIUM 8.5 mg/dL (8.5-10.1)
[2021-12-29 09:08] LABS: BLOOD UREA NITROGEN 7.8 mg/dL (7-18)
[2021-12-29] MEDS ORDERED: DEXTROSE 5%-WATER - 50 ML IVPB ONE (12:14)
[2021-12-29] MEDS ORDERED: cefTRIAXone SODIUM 1 GM VIAL ONE (12:14)
[2021-12-29] MEDS: CEFTRIAXONE 1 GM in DEXTROSE 5%-WATER - 50 ML IVPB SCH (12:17)
[2021-12-30] MEDS: SODIUM CHLORIDE 1,000 ML IV SCH (04:27)
[2021-12-30 08:46] VITALS: BP 122/71; PULSE 77; TEMP 98.7
[2021-12-30] MEDS ORDERED: cefTRIAXone SODIUM 1 GM VIAL ONE (09:14)
[2021-12-30] MEDS ORDERED: DEXTROSE 5%-WATER - 50 ML IVPB ONE (09:15)
[2021-12-30] MEDS: CEFTRIAXONE 1 GM in DEXTROSE 5%-WATER - 50 ML IVPB SCH (09:16)
== END 2021-12-30 15:54 | disposition home or self-care (01) | DRG 463 ==
LOC: JER 02:59 → JERBED 10:04 → J6S 21:01
PROVIDERS: ADMIT Internal Medicine; ATTEND Internal Medicine
DX: N10 Acute pyelonephritis (principal); N13.30 Unspecified hydronephrosis; R10.9 Unspecified abdominal pain; E87.6 Hypokalemia; E66.9 Obesity, unspecified; J45.909 Unspecified asthma, uncomplicated; Z68.37 Body mass index [BMI] 37.0-37.9, adult; B96.20 Unspecified Escherichia coli [E. coli] as the cause of diseases classified elsewhere
CPT/HCPCS: 36415; 74177-TC; 76705-TC; 80048; 80053; 81003; 83690; 84484; 84703; 85025; 85027; 87086; 87186; 93005; 93010; 99285-25; C9803-CS; Q9967; U0003; U0005

== ENCOUNTER 2022-08-09 11:21 | Emergency (ER) | payer OTHER ==
[2022-08-09 11:32] VITALS: BP 147/83; PULSE 94; RESP 17; TEMP 98.9; BMI 40.0
[2022-08-09] MEDS ORDERED: DEXAMETHASONE LIQUID 0.5 MG/5 ML PO ONE (12:18)
[2022-08-09] MEDS ORDERED: DEXAMETHASONE SOD PHOSPHATE 10 MG/1 ML VIAL ONE (12:20)
[2022-08-09] MEDS ORDERED: ALBUTEROL SO4 2.5/IPRATROPIUM 0.5 INH SOL 3 ML VIAL.NEB. NEB SCH (12:30)
== END 2022-08-09 14:01 | disposition home or self-care (01) ==
LOC: JER 11:21
PROC: 3E0F7GC Introduction of Other Therapeutic Substance into Respiratory Tract, Via Natural or Artificial Opening (ICD-10-PCS; principal; 2022-08-09)
DX: J45.20 Mild intermittent asthma, uncomplicated (principal)
CPT/HCPCS: 99283-25

== ENCOUNTER 2022-09-08 16:01 | Emergency (ER) | payer OTHER ==
[2022-09-08 16:22] VITALS: BP 122/79; PULSE 111; RESP 20; BMI 41.0
[2022-09-08] MEDS ORDERED: FAMOTIDINE 20 MG/50 ML IVPB 20 MG/50 ML MG IVPB ONE ×2 (17:20→17:32)
[2022-09-08] MEDS ORDERED: LACTATED RINGERS SOLUTION 1000 ML INFUS.BAG IV ONE (17:20)
[2022-09-08] MEDS ORDERED: ONDANSETRON 4 MG/2 ML VIAL IVPUSH ONE (17:20)
[2022-09-08] MEDS ORDERED: ONDANSETRON 4 MG/2 ML VIAL ONE (17:32)
[2022-09-08] MEDS ORDERED: IBUPROFEN 600 MG TABLET (FP) PO ONE ×2 (17:41→18:18)
[2022-09-08 18:32] LABS: BASO % 0.2 % (0-2.0); EPI CELLS 9 /uL (0-25.1); HEMATOCRIT 35.5 % (32.4-45.2); HEMOGLOBIN 11.8 GM/dL (10.7-15.3); HYALINE CASTS 1 /uL (0-3.1); LYMPH % 8.8 % (8-40); MCH 29.2 pg (25.7-33.7); MCHC 33.2 g/dl (32.0-36.0); MEAN PLT VOLUME 8.1 fl (7.5-11.1); PLATELET COUNT 317 10^3/uL (134-434); RBC 4.03 M/mm3 (3.60-5.2); RDW 13.8 % (11.6-15.6); URINE APPEARANCE CLEAR; URINE BACTERIA 16 /uL (0-1359); URINE BILIRUBIN NEGATIVE (NEGATIVE); URINE COLOR YELLOW; URINE GLUCOSE (UA) NEGATIVE (NEGATIVE); URINE KETONE NEGATIVE (NEGATIVE); URINE LEUK ESTERASE TRACE (NEGATIVE); URINE NITRITE NEGATIVE (NEGATIVE); URINE PROTEIN 2+ (NEGATIVE); URINE RBC 724 /uL (0-23.9); URINE WBC 76 /uL (0-25.8); WHITE BLOOD COUNT 19.6 K/mm3 (4.0-10.0)
[2022-09-08 18:53] LABS: ALBUMIN 3.3 g/dl (3.4-5.0); BLOOD UREA NITROGEN 8.8 mg/dL (7-18); MAGNESIUM 1.9 mg/dL (1.8-2.4)
[2022-09-08 18:55] LABS: CREATININE 1.2 mg/dL (0.55-1.3)
[2022-09-08 18:58] LABS: BILIRUBIN,TOTAL 0.6 mg/dL (0.2-1); TOT PROT 6.8 g/dl (6.4-8.2)
[2022-09-08] MEDS ORDERED: ACETAMINOPHEN INJECTION 100 ML IVPB ONE (19:56)
[2022-09-08] MEDS ORDERED: ACETAMINOPHEN 1000 MG/100 ML BAG IVPB ONE (20:00)
[2022-09-08] MEDS ORDERED: ACETAMINOPHEN 325 MG TABLET (FP) ONE (20:02)
[2022-09-08] MEDS ORDERED: ACETAMINOPHEN 325 MG TABLET (FP) PO ONE (20:02)
[2022-09-08 20:26] VITALS: TEMP 98.9
[2022-09-09] MEDS ORDERED: levoFLOXacin 750 MG TABLET PO ONE (22:02)
== END 2022-09-08 22:12 | disposition home or self-care (01) ==
LOC: JER 16:01
PROC: 3E0333Z Introduction of Anti-inflammatory into Peripheral Vein, Percutaneous Approach (ICD-10-PCS; principal; 2022-09-08)
PROC: 3E033GC Introduction of Other Therapeutic Substance into Peripheral Vein, Percutaneous Approach (ICD-10-PCS; 2022-09-08)
DX: R10.11 Right upper quadrant pain (principal)
CPT/HCPCS: 0241U-QW; 36415; 71045-TC-FY; 74176-TC; 80053; 81003; 83690; 83735; 84484; 84703; 85025; 87086; 93005; 93010; 99285-25

== ENCOUNTER 2023-10-15 10:38 | Emergency (ER) | payer OTHER ==
[2023-10-15 11:05] VITALS: BP 139/76; PULSE 84; RESP 18; TEMP 97.1; BMI 36.1
[2023-10-15] MEDS ORDERED: predniSONE 20 MG TABLET (UD) PO ONE (11:16)
[2023-10-15] MEDS ORDERED: predniSONE 20 MG TABLET (UD) ONE ×2 (11:21)
[2023-10-15] MEDS: ALBUTEROL SO4 2.5/IPRATROPIUM 0.5 INH SOL 3 ML VIAL.NEB. NEB SCH (11:22)
== END 2023-10-15 12:59 | disposition home or self-care (01) ==
LOC: JERFT 10:38
PROC: 3E0F7GC Introduction of Other Therapeutic Substance into Respiratory Tract, Via Natural or Artificial Opening (ICD-10-PCS; principal; 2023-10-15)
DX: J45.909 Unspecified asthma, uncomplicated (principal); L72.0 Epidermal cyst
CPT/HCPCS: 99283-25

== ENCOUNTER 2024-04-01 00:21 | Emergency (ER) | payer OTHER ==
[2024-04-01 00:38] VITALS: BP 135/83; PULSE 82; RESP 20; TEMP 97.9; BMI 41.0
[2024-04-01] MEDS: ALBUTEROL SO4 2.5/IPRATROPIUM 0.5 INH SOL 3 ML VIAL.NEB. NEB SCH (01:15)
[2024-04-01] MEDS ORDERED: ALBUTEROL SO4 2.5/IPRATROPIUM 0.5 INH SOL 3 ML VIAL.NEB. NEB ONE (01:16)
[2024-04-01] MEDS ORDERED: DEXAMETHASONE SOD PHOSPHATE 10 MG/1 ML VIAL ONE (02:42)
[2024-04-01] MEDS ORDERED: ALBUTEROL SO4 HFA INHALER IH ONE (02:42)
[2024-04-01] MEDS: DEXAMETHASONE SOD PHOSPHATE 10 MG/1 ML VIAL PO ONE (02:46)
[2024-04-01] MEDS: ALBUTEROL SO4 HFA INHALER IH ONE (02:46)
== END 2024-04-01 02:59 | disposition home or self-care (01) ==
LOC: JER 00:21
PROC: 3E0F7GC Introduction of Other Therapeutic Substance into Respiratory Tract, Via Natural or Artificial Opening (ICD-10-PCS; principal; 2024-04-01)
DX: J45.901 Unspecified asthma with (acute) exacerbation (principal); R06.02 Shortness of breath; F17.210 Nicotine dependence, cigarettes, uncomplicated
CPT/HCPCS: 99283-25; J1100